=== PATIENT | male | born 1990 | race Caucasian/White ===

== ENCOUNTER → 2018-02-10 15:35 | Outpatient (REF) | payer BC, SELFPAY | LOC: LBN 15:35 | PROVIDERS: PCP Nurse Practitioner; Visit Provider Student in an Organized Health Care Education/Training Program | DX: R35.0 Frequency of micturition (principal) | CPT/HCPCS: 87086 ==

== ENCOUNTER → 2018-02-21 10:08 | Outpatient (CLI) | payer BC, SELFPAY ==
[2018-02-21 11:06] LABS: Abs Immature Grans 0.03 k/cumm (0.0-0.09); Absolute Basophil Count 0.02 k/cumm (0.0-0.2); Absolute Eosinophil Count 0.17 k/cumm (0.0-0.7); Absolute Lymphocyte Count 2.32 k/cumm (1.2-3.4); Absolute Monocyte Count 0.68 k/cumm (0.11-0.7); Absolute Neutrophil Count 4.29 k/cumm (1.2-6.7); Basophils % 0.3; Eosinophils % 2.3; HCT 44.1 % (40.0-50.0); Immature Grans % 0.4; Lymphocytes % 30.9; Mean Corpuscular Hemoglobin 31.5 pg (27.0-33.0); Mean Corpuscular Volume 92.6 fL (80-95); Mean Platelet Volume 10.5 fL (8.0-11.0); Monocytes % 9.1; Platelet Count 223 x1000/uL (130-400); RBC 4.76 m/cumm (4.50-6.00); RBC Distribution Width 12.6 % (11.8-14.1); White Blood Cell Count 7.51 k/cumm (4.4-10.8)
[2018-02-21 12:49] LABS: ALT 25 U/L (12-78); AST 13 U/L (15-37); Albumin 4.1 g/dL (3.4-5.0); Alkaline Phosphatase 68 U/L (46-116); Anion Gap 8.4 mmol/L (3-11); BUN 17 mg/dL (7-18); Bilirubin, Total 0.7 mg/dL (0.2-1.0); CO2 28.6 mmol/L (21.0-32.0); CREATININE 0.92 mg/dL (0.70-1.30); Calcium 9.2 mg/dL (8.5-10.1); Chloride 104 mmol/L (98-107); Glucose 80 mg/dL (70-100); Potassium 4.8 mmol/L (3.5-5.1); Sodium 141 mmol/L (136-145); Total Protein 7.7 g/dL (6.4-8.2)
[2018-02-22 08:56] LABS: PSA, Screening 0.6 ng/ml (0-2.5)
== END ==
PROVIDERS: Student in an Organized Health Care Education/Training Program; PCP Nurse Practitioner; Visit Provider Nurse Practitioner Gerontology
DX: R35.0 Frequency of micturition (principal); N40.0 Benign prostatic hyperplasia without lower urinary tract symptoms; Z12.5 Encounter for screening for malignant neoplasm of prostate
CPT/HCPCS: 36415; 80053; 84153; 85025

== ENCOUNTER 2018-04-07 15:44 | Emergency (ER) | payer BC, SELFPAY ==
[2018-04-07 15:49] VITALS: BP 144/86; PULSE 86; RESP 16; TEMP 36.8; O2SAT 100
[2018-04-07 16:12] LABS: Bilirubin Negative (Negative); Blood Negative (Negative); Clarity Clear; Glucose Negative (Negative); Ketones Negative (Negative); Leukocyte Esterase Negative (Negative); Nitrite Negative (Negative); Urobilinogen 0.2 EU/dL (Up TO 0.2)
[2018-04-07] MEDS: Ibuprofen 800 MG TAB PO (17:16)
--- NOTE | 2018-04-07 17:17 | W.ED.GENAD ---
Discharge Plan Disposition Patient Disposition: HOME Condition: Good Discharge Details Chief Complaint: Urinary Clinical Impression: Strain of muscle and tendon of back wall of thorax, initial encounter, URI (upper respiratory infection) Primary Care Provider: Karlie Tobar ED Provider: Augustin Mccollum Home Meds and New Rx's Prescriptions: New cyclobenzaprine 10 mg tablet 10 mg PO TID PRN (Reason: muscle spasm) Qty: 12 RF: 0 ibuprofen [IBU] 600 mg tablet 600 mg PO QID PRN (Reason: pain) Qty: 14 RF: 0 No Action ibuprofen [Ibuprofen IB] 200 mg Tablet 800 mg PO PRN PRNRF: 0 Discharge Instructions Instructions: Muscle Strain (ED), Upper Respiratory Infection (ED) Additional Instructions: Feel free to return to the emergency department for any new or worsening symptoms otherwise follow-up with your primary care provider if not improving in the next week. Referrals: Karlie Tobar, NUCLEAR MEDICINE OFFICER [Primary Care Provider] - 1 week (if not improving) Discharge Data Discharge Date/Time-TO BE ENTERED AT DEPARTURE: 04/07/18 17:41 Medical Decision Making Patient presenting to the emergency department chief complaint of back pain for 1 week. 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 Patient also states some urinary frequency that he is noted but denies any penile discharge, testicular pain, does state that he recently was diagnosed with enlarged prostate and recommended to take Flomax which is not begun. Patient also states some nasal congestion sore throat mild cough that started last couple days. Physical exam is unremarkable except for some left lower thoracic paraspinal tenderness with no tenderness to the vertebral bodies and lumbar spine unremarkable except for some soft tissue tenderness. Patient does have worsening pain and discomfort with range of motion activities. Pain is reproducible with palpation of the soft tissue so I more suspect musculoskeletal source of discomfort and not any urinary or renal colic type pain. I do not feel that any labs or imaging is needed at this time but these are considered for rule out of renal issues which I doubt. Given the patient stated some urinary symptoms staff pharmacist hospital initiated protocol and urinalysis was ordered and sent which was reviewed and is negative. Patient prescribed ibuprofen and Flexeril to use to see if this helps with his discomfort and recommended to follow-up with his primary care provider in 1 week for reassessment otherwise to return immediately for any new or worsening symptoms. I feel that patient's other symptoms may be related to upper respiratory tract infection which the coughing may also have exacerbated his back pain. After discussion of diagnosis and plan of care patient is no further needs, questions, or concerns and states clear understanding to return to the emergency department for any worsening symptoms. HPI General Mode of arrival: ambulatory. Date/Time Provider Initiated Documentation: 04/07/18 16:41. Limitations to Documentation: no limitations. Information obtained by: patient and RN notes reviewed. History of Present Illness 27 year old M presents to the emergency department with the chief complaint of Back pain, with intensity rated at 7. Quality is described as aching, and is localized to the back (mid back). Patient started experiencing this week(s) (1) and it has been constant. No relieving factors improve symptom(s), No exacerbating factors reported . Patient notes no other symptoms.. Patient did receive the following treatments prior to arrival, none Related Data Home Medications Medication Instructions Recorded Confirmed cyclobenzaprine 10 mg PO TID PRN #12 tab 04/07/18 ibuprofen [IBU] 600 mg PO QID PRN #14 tab 04/07/18 ibuprofen [Ibuprofen IB] 800 mg PO PRN PRN 04/07/18 04/07/18 Previous Rx's Medication Instructions Recorded cyclobenzaprine 10 mg PO TID PRN #12 tab 04/07/18 ibuprofen [IBU] 600 mg PO QID PRN #14 tab 04/07/18 Allergies Allergy/AdvReac Type Severity Reaction Status Date / Time No Known Allergies Allergy Unverified 04/07/18 15:56 General Stated Complaint: Urinary YOEL: 3 Review of Systems Constitutional Denies body ache(s), Denies chills and Denies fever(s) ENT Reports nasal congestion and Reports sore throat Cardiovascular Denies chest pain and Denies dyspnea Respiratory Reports cough and Denies dyspnea Gastrointestinal Denies abdominal pain, Denies nausea and Denies vomiting Genitourinary Denies genital pain, Denies penile discharge, Denies testicular pain and Reports urinary frequency Musculoskeletal Reports back pain Integumentary/Breasts Denies rash Neurologic Denies confusion and Denies sensory deficit Psychiatric Denies confusion PFS Family History Mother Alcohol abuse Neoplasm Father Neoplasm Grandfather Alcohol abuse Neoplasm Grandmother Neoplasm Maternal Aunt Alcohol abuse Grandmother Alcohol abuse Medical History Back pain (Acute) Social History Smoking/Tobacco Use Status: Current every day Surgical History Fx distal radium metaphysis (11/02/05) Tonsillectomy (08/02/05) Exam Const General: cooperative, no acute distress and not ill appearing Orientation: alert, awake and oriented x3 HENMT Ears: hearing grossly normal bilaterally and TM's normal bilaterally General nose exam: external nose normal Mouth: moist mucous membranes and no muffled voice Throat: posterior oropharynx normal Neck Neck: full ROM, no lymphadenopathy and no meningeal signs Resp Effort & Inspection: normal respiratory effort, able to speak in complete sentences and no respiratory distress Auscultation: clear to auscultation bilaterally Cardio Rate: regular rate Rhythm: regular rhythm Heart Sounds: S1 normal, S2 normal and no murmurs Back/Spine/Pelvis Back: no CVA tenderness Thoracic/Lumbar Spine: thoraco-lumbar ROM normal, pain with thoraco-lumbar ROM, paraspinal tenderness, No thoraco-lumbar spasm and lumbar spinal tenderness Skin General skin exam: no rashes or lesions noted Neuro General: alert, awake, oriented x3, moves all extremities and no focal motor deficits Sensory Exam: no sensory deficits noted Course Vital Signs Temperature 36.8 C 04/07/18 15:49 Pulse 86 04/07/18 15:49 Respiratory Rate 16 04/07/18 15:49 Blood Pressure 144/86 H 04/07/18 15:49 Pulse Oximetry 100 04/07/18 15:49 Temperature 36.8 C 04/07/18 15:49 Temperature Source Skin 04/07/18 15:49 Pulse 86 04/07/18 15:49 Respiratory Rate 16 04/07/18 15:49 Respiratory Effort 04/07/18 15:55 Blood Pressure 144/86 H 04/07/18 15:49 Blood Pressure Position Sitting 04/07/18 15:49 Pulse Oximetry 100 04/07/18 15:49 Oxygen Delivery Method Room Air 04/07/18 15:49 Oxygen Flow Rate 0 04/07/18 15:49 Pain Level 8 04/07/18 15:57 Lab/Test Results Lab/Test Results: Laboratory Tests Range/Units 04/07/18 16:03 Urine Color (Yellow) Yellow Urine Clarity Clear Urine pH (5-8) 7.0 Ur Specific [place] (1.005-1.025) 1.020 Urine Protein (Negative) mg/dL Negative Urine Ketones (Negative) mg/dL Negative Urine Blood (Negative) Negative Urine Nitrite (Negative) Negative Urine Bilirubin (Negative) Negative Urine Urobilinogen (Up TO 0.2) EU/dL 0.2 Ur Leukocyte Esterase (Negative) Negative Urine Glucose (Negative) mg/dL Negative
--- NOTE | 2018-04-07 17:28 | ED.GENADUL_ITS ---
Discharge Plan Disposition Patient Disposition: HOME Condition: Good Discharge Details Chief Complaint: Urinary Clinical Impression: Strain of muscle and tendon of back wall of thorax, initial encounter, URI ( upper respiratory infection) Primary Care Provider: Karlie Tobar ED Provider: Augustin Mccollum Home Meds and New Rx's Prescriptions: New cyclobenzaprine 10 mg tablet 10 mg PO TID PRN (Reason: muscle spasm) Qty: 12 RF: 0 ibuprofen [IBU] 600 mg tablet 600 mg PO QID PRN (Reason: pain) Qty: 14 RF: 0 No Action ibuprofen [Ibuprofen IB] 200 mg Tablet 800 mg PO PRN PRNRF: 0 Discharge Instructions Instructions: Muscle Strain (ED), Upper Respiratory Infection (ED) Additional Instructions: Feel free to return to the emergency department for any new or worsening symptoms otherwise follow-up with your primary care provider if not improving in the next week. Referrals: Karlie Tobar, HOSPICE SPIRITUAL CARE COORDINATOR [Primary Care Provider] - 1 week (if not improving) Discharge Data Discharge Date/Time-TO BE ENTERED AT DEPARTURE: 04/07/18 17:41 Medical Decision Making Patient presenting to the emergency department chief complaint of back pain for 1 week. 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 Patient also states some urinary frequency that he is noted but denies any penile discharge, testicular pain, does state that he recently was diagnosed with enlarged prostate and recommended to take Flomax which is not begun. Patient also states some nasal congestion sore throat mild cough that started last couple days. Physical exam is unremarkable except for some left lower thoracic paraspinal tenderness with no tenderness to the vertebral bodies and lumbar spine unremarkable except for some soft tissue tenderness. Patient does have worsening pain and discomfort with range of motion activities. Pain is reproducible with palpation of the soft tissue so I more suspect musculoskeletal source of discomfort and not any urinary or renal colic type pain. I do not feel that any labs or imaging is needed at this time but these are considered for rule out of renal issues which I doubt. Given the patient stated some urinary symptoms staff design engineer initiated protocol and urinalysis was ordered and sent which was reviewed and is negative. Patient prescribed ibuprofen and Flexeril to use to see if this helps with his discomfort and recommended to follow-up with his primary care provider in 1 week for reassessment otherwise to return immediately for any new or worsening symptoms. I feel that patient's other symptoms may be related to upper respiratory tract infection which the coughing may also have exacerbated his back pain. After discussion of diagnosis and plan of care patient is no further needs, questions, or concerns and states clear understanding to return to the emergency department for any worsening symptoms. HPI General Mode of arrival: ambulatory . Date/Time Provider Initiated Documentation: 04/07/18 16:41 . Limitations to Documentation: no limitations . Information obtained by: patient and RN notes reviewed . History of Present Illness 27 year old M presents to the emergency department with the chief complaint of Back pain, with intensity rated at 7. Quality is described as aching, and is localized to the back (mid back). Patient started experiencing this week(s ) (1) and it has been constant. No relieving factors improve symptom(s), No exacerbating factors reported . Patient notes no other symptoms.. Patient did receive the following treatments prior to arrival, none Related Data Home Medications Medication Instructions Recorded Confirmed cyclobenzaprine 10 mg PO TID PRN #12 tab 04/07/18 ibuprofen [IBU] 600 mg PO QID PRN #14 tab 04/07/18 ibuprofen [Ibuprofen IB] 800 mg PO PRN PRN 04/07/18 04/07/18 Previous Rx's Medication Instructions Recorded cyclobenzaprine 10 mg PO TID PRN #12 tab 04/07/18 ibuprofen [IBU] 600 mg PO QID PRN #14 tab 04/07/18 Allergies Allergy/AdvReac Type Severity Reaction Status Date / Time No Known Allergies Allergy Unverified 04/07/18 15:56 General Stated Complaint: Urinary YOEL: 3 Review of Systems Constitutional Denies body ache(s), Denies chills and Denies fever(s) ENT Reports nasal congestion and Reports sore throat Cardiovascular Denies chest pain and Denies dyspnea Respiratory Reports cough and Denies dyspnea Gastrointestinal Denies abdominal pain, Denies nausea and Denies vomiting Genitourinary Denies genital pain, Denies penile discharge, Denies testicular pain and Reports urinary frequency Musculoskeletal Reports back pain Integumentary/Breasts Denies rash Neurologic Denies confusion and Denies sensory deficit Psychiatric Denies confusion PFS Family History Mother Alcohol abuse Neoplasm Father Neoplasm Grandfather Alcohol abuse Neoplasm Grandmother Neoplasm Maternal Aunt Alcohol abuse Grandmother Alcohol abuse Medical History Back pain (Acute) Social History Smoking/Tobacco Use Status: Current every day Surgical History Fx distal radium metaphysis (11/02/05) Tonsillectomy (08/02/05) Exam Const General: cooperative, no acute distress and not ill appearing Orientation: alert, awake and oriented x3 HENMT Ears: hearing grossly normal bilaterally and TM's normal bilaterally General nose exam: external nose normal Mouth: moist mucous membranes and no muffled voice Throat: posterior oropharynx normal Neck Neck: full ROM, no lymphadenopathy and no meningeal signs Resp Effort & Inspection: normal respiratory effort, able to speak in complete sentences and no respiratory distress Auscultation: clear to auscultation bilaterally Cardio Rate: regular rate Rhythm: regular rhythm Heart Sounds: S1 normal, S2 normal and no murmurs Back/Spine/Pelvis Back: no CVA tenderness Thoracic/Lumbar Spine: thoraco-lumbar ROM normal, pain with thoraco-lumbar ROM, paraspinal tenderness, No thoraco-lumbar spasm and lumbar spinal tenderness Skin General skin exam: no rashes or lesions noted Neuro General: alert, awake, oriented x3, moves all extremities and no focal motor deficits Sensory Exam: no sensory deficits noted Course Vital Signs Temperature 36.8 C 04/07/18 15:49 Pulse 86 04/07/18 15:49 Respiratory Rate 16 04/07/18 15:49 Blood Pressure 144/86 H 04/07/18 15:49 Pulse Oximetry 100 04/07/18 15:49 Temperature 36.8 C 04/07/18 15:49 Temperature Source Skin 04/07/18 15:49 Pulse 86 04/07/18 15:49 Respiratory Rate 16 04/07/18 15:49 Respiratory Effort 04/07/18 15:55 Blood Pressure 144/86 H 04/07/18 15:49 Blood Pressure Position Sitting 04/07/18 15:49 Pulse Oximetry 100 04/07/18 15:49 Oxygen Delivery Method Room Air 04/07/18 15:49 Oxygen Flow Rate 0 04/07/18 15:49 Pain Level 8 04/07/18 15:57 Lab/Test Results Lab/Test Results: Laboratory Tests Range/Units 04/07/18 16:03 Urine Color (Yellow) Yellow Urine Clarity Clear Urine pH (5-8) 7.0 Ur Specific [place] (1.005-1.025) 1.020 Urine Protein (Negative) mg/dL Negative Urine Ketones (Negative) mg/dL Negative Urine Blood (Negative) Negative Urine Nitrite (Negative) Negative Urine Bilirubin (Negative) Negative Urine Urobilinogen (Up TO 0.2) EU/dL 0.2 Ur Leukocyte Esterase (Negative) Negative Urine Glucose (Negative) mg/dL Negative
[2018-04-07 17:40] VITALS: BP 144/86; PULSE 86; RESP 16; TEMP 36.8; O2SAT 100
== END 2018-04-07 17:41 | disposition home or self-care (01) ==
PROVIDERS: Emergency Provider Nurse Practitioner Family; PCP Nurse Practitioner
DX: S29.012A Strain of muscle and tendon of back wall of thorax, initial encounter (principal); X58.XXXA Exposure to other specified factors, initial encounter; J06.9 Acute upper respiratory infection, unspecified; R35.0 Frequency of micturition
CPT/HCPCS: 99283; 81003

== ENCOUNTER 2018-11-07 00:39 | Emergency (ER) | payer SELFPAY ==
[2018-11-07 00:40] VITALS: BP 133/76; PULSE 96; RESP 16; TEMP 36.4; O2SAT 98
[2018-11-07 00:49] LABS: Bilirubin Negative (Negative); Blood Moderate (Negative); Clarity Sl Cloudy; Glucose Negative (Negative); Ketones Negative (Negative); Leukocyte Esterase Negative (Negative); Nitrite Negative (Negative); Specific Gravity 1.025 (1.005-1.025); Urobilinogen 0.2 EU/dL (Up TO 0.2)
--- NOTE | 2018-11-07 00:52 | DI.CT_ITS ---
SYMPTOMS/DIAGNOSIS: RT FLANK PAIN, HEMATURIA RENAL COLIC CT: Routine examination was performed. There are no priors for comparison. No acute findings are seen in the lung bases. Lack of IV contrast does limit evaluation of the abdominal and pelvic organs. The unenhanced visualized portions of the liver, spleen, pancreas, gallbladder and adrenal glands are unremarkable. There is a 3 mm stone in the proximal right ureter causing mild hydronephrosis. No other renal stones or ureteral stones are present. The urinary bladder is intact. The reproductive organs are unremarkable. The bowel is unremarkable. No evidence of an acute appendicitis is present. The abdominal aorta is of normal caliber. No significant abdominal or pelvic adenopathy, ascites or pneumoperitoneum is seen. No acute osseous abnormality is identified. IMPRESSION: 3 mm proximal right ureteral stone causing mild hydronephrosis.
--- NOTE | 2018-11-07 00:52 | W.ED.GENAD ---
Discharge Plan Disposition Patient Disposition: HOME Condition: Improving Discharge Details Chief Complaint: FlankPain Clinical Impression: Renal colic on right side Primary Care Provider: Karlie Tobar ED Provider: David Raman Home Meds and New Rx's Prescriptions: New tamsulosin [Flomax] 0.4 mg capsule 0.4 mg PO DAILY Qty: 7 RF: 0 Continued ibuprofen [IBU] 600 mg tablet 600 mg PO QID PRN (Reason: pain) Qty: 14 RF: 0 Discharge Instructions Instructions: Abdominal Pain (ED) Additional Instructions: Take Flomax once daily while you are having symptoms of kidney stone. This medication may cause lightheadedness when rising quickly from a seated or lying position. Home to rest this evening. Small, frequent sips of fluids to maintain hydration. We will refer you to urology for follow-up. A referral was placed tonight. May use the hydrocodone if needed for severe breakthrough pain. Ibuprofen 600 800 mg every 8 hours, with food. Return if you develop a fever, worsening pain, or any other acute concerns. Medical Decision Making 28-year-old male presents from home with 1 day of intermittent episodes of right flank pain that radiates at times to his groin. He is afebrile and in mild distress on initial exam with tenderness on the right flank and right abdomen. Differential diagnosis includes renal colic, appendicitis, unusual presentation of biliary colic. IV placed, labs obtained, patient referred for CT imaging. Diagnostics: Positive hematuria, unremarkable CBC and chemistries. Patients CT reveals a 3 mm right proximal ureteral calculus with mild hydronephrosis. His pain is improved with parenteral medications, may require additional analgesia at home. We will have him strain his urine, we will place him on Flomax for ureteral dilatation, and asked that he follow-up with urology. Patient understands return precautions. Stable for discharge to home. HPI General Mode of arrival: ambulatory. Date/Time Provider Initiated Documentation: 11/07/18 00:46. Limitations to Documentation: no limitations. Information obtained by: patient and family. History of Present Illness 28 year old M presents to the emergency department with the chief complaint of Right flank pain intermittently since last night, described as moderate, Quality is described as stabbing, and is localized to the back and right. Patient abdomen. Patient started experiencing this hour(s) and it has been intermittent. No relieving factors improve symptom(s), No exacerbating factors reported . Patient notes other (Change to stream of urine). Patient did receive the following treatments prior to arrival, NSAID Related Data Home Medications Medication Instructions Recorded Confirmed ibuprofen [IBU] 600 mg PO QID PRN #14 tab 04/07/18 11/07/18 tamsulosin [Flomax] 0.4 mg PO DAILY #7 cap 11/07/18 Previous Rx's Medication Instructions Recorded ibuprofen [IBU] 600 mg PO QID PRN #14 tab 04/07/18 tamsulosin [Flomax] 0.4 mg PO DAILY #7 cap 11/07/18 Allergies Allergy/AdvReac Type Severity Reaction Status Date / Time No Known Allergies Allergy Unverified 11/07/18 00:40 General Stated Complaint: FlankPain YOEL: 3 Review of Systems Review of Systems 8 systems reviewed and otherwise negative [facility] Medical History Back pain (Acute) Surgical History Fx distal radium metaphysis (11/02/05) Tonsillectomy (08/02/05) Family History Mother Alcohol abuse Neoplasm Father Neoplasm Grandfather Alcohol abuse Neoplasm Grandmother Neoplasm Maternal Aunt Alcohol abuse Grandmother Alcohol abuse Social History Smoking/Tobacco Use Status: Current every day Drug use: Occasionally Do you feel safe in your relationship?: Yes Exam Narrative Exam Narrative: GEN: awake, alert, oriented 3. Pleasant, well groomed, interactive. HEAD: Normocephalic, atraumatic ENT: Mucous membranes moist, oropharynx unremarkable, External ear exam unremarkable EYES: PERRL, EOMI NECK: Full ROM, no COLLEEN, no menigismus CHEST/RESP: Nontender, clear to auscultation bilateral but with few scattered wheezes. Back: Right flank tender to percussion CARDIOVASCULAR: RRR, no murmur, rub bautista. 2+ Rad pulse bilateral ABDOMEN: Soft, right-sided abdominal tenderness, no mass. +Bowel sounds EXT: Full ROM, no edema, no rash Neuro: Grossly normal neurologic exam, conversant, interactive. Psych: Speech fluent, thoughts congruent, affect normal Course Vital Signs Temperature 36.4 C L 11/07/18 00:40 Pulse 96 H 11/07/18 00:40 Respiratory Rate 16 11/07/18 00:40 Blood Pressure 133/76 11/07/18 00:40 Pulse Oximetry 98 11/07/18 00:40 Temperature 36.4 C L 11/07/18 00:40 Temperature Source Temporal Artery Scan 11/07/18 00:40 Pulse 96 H 11/07/18 00:40 Respiratory Rate 16 11/07/18 00:40 Respiratory Effort 11/07/18 00:40 Blood Pressure 133/76 11/07/18 00:40 Blood Pressure Position Sitting 11/07/18 00:40 Pulse Oximetry 98 11/07/18 00:40 Oxygen Delivery Method Room Air 11/07/18 00:40 Oxygen Flow Rate 0 11/07/18 00:40 Pain Level 6 11/07/18 00:45 Lab/Test Results Lab/Test Results: Laboratory Tests Range/Units 11/07/18 00:45 Urine Color (Yellow) Yellow Urine Clarity Sl cloudy Urine pH (5-8) 6.0 Ur Specific [place] (1.005-1.025) 1.025 Urine Protein (Negative) mg/dL Trace H Urine Ketones (Negative) mg/dL Negative Urine Blood (Negative) Moderate H Urine Nitrite (Negative) Negative Urine Bilirubin (Negative) Negative Urine Urobilinogen (Up TO 0.2) EU/dL 0.2 Ur Leukocyte Esterase (Negative) Negative Urine Glucose (Negative) mg/dL Negative
[2018-11-07 00:55] LABS: Bacteria Few HPF (Negative); C & S Indicated? No; Casts Negative LPF (Negative); Crystals Negative HPF (Negative); Epithelial Cells Rare HPF (Negative); Mucus Negative (Negative); RBC >50 (0-2); WBC 0-2 HPF (0-5)
[2018-11-07] MEDS: Normal Saline 1,000 ML 1000 ML IV (00:55)
[2018-11-07] MEDS: Ketorolac 30 MG/ML VIAL IVP (00:55)
--- NOTE | 2018-11-07 00:55 | ED.GENADUL_ITS ---
Discharge Plan Disposition Patient Disposition: HOME Condition: Improving Discharge Details Chief Complaint: FlankPain Clinical Impression: Renal colic on right side Primary Care Provider: Karlie Tobar ED Provider: David Raman Home Meds and New Rx's Prescriptions: New tamsulosin [Flomax] 0.4 mg capsule 0.4 mg PO DAILY Qty: 7 RF: 0 Continued ibuprofen [IBU] 600 mg tablet 600 mg PO QID PRN (Reason: pain) Qty: 14 RF: 0 Discharge Instructions Instructions: Abdominal Pain (ED) Additional Instructions: Take Flomax once daily while you are having symptoms of kidney stone. This medication may cause lightheadedness when rising quickly from a seated or lying position. Home to rest this evening. Small, frequent sips of fluids to maintain hydration. We will refer you to urology for follow-up. A referral was placed tonight. May use the hydrocodone if needed for severe breakthrough pain. Ibuprofen 600 800 mg every 8 hours, with food. Return if you develop a fever, worsening pain, or any other acute concerns. Medical Decision Making 28-year-old male presents from home with 1 day of intermittent episodes of right flank pain that radiates at times to his groin. He is afebrile and in mild distress on initial exam with tenderness on the right flank and right abdomen. Differential diagnosis includes renal colic, appendicitis, unusual presentation of biliary colic. IV placed, labs obtained, patient referred for CT imaging. Diagnostics: Positive hematuria, unremarkable CBC and chemistries. Patients CT reveals a 3 mm right proximal ureteral calculus with mild hydronephrosis. His pain is improved with parenteral medications, may require additional analgesia at home. We will have him strain his urine, we will place him on Flomax for ureteral dilatation, and asked that he follow-up with urology. Patient understands return precautions. Stable for discharge to home. HPI General Mode of arrival: ambulatory . Date/Time Provider Initiated Documentation: 11/07/18 00:46 . Limitations to Documentation: no limitations . Information obtained by: patient and family . History of Present Illness 28 year old M presents to the emergency department with the chief complaint of Right flank pain intermittently since last night, described as moderate, Quality is described as stabbing, and is localized to the back and right. Patient abdomen. Patient started experiencing this hour(s) and it has been intermittent. No relieving factors improve symptom(s), No exacerbating factors reported . Patient notes other (Change to stream of urine). Patient did receive the following treatments prior to arrival, NSAID Related Data Home Medications Medication Instructions Recorded Confirmed ibuprofen [IBU] 600 mg PO QID PRN #14 tab 04/07/18 11/07/18 tamsulosin [Flomax] 0.4 mg PO DAILY #7 cap 11/07/18 Previous Rx's Medication Instructions Recorded ibuprofen [IBU] 600 mg PO QID PRN #14 tab 04/07/18 tamsulosin [Flomax] 0.4 mg PO DAILY #7 cap 11/07/18 Allergies Allergy/AdvReac Type Severity Reaction Status Date / Time No Known Allergies Allergy Unverified 11/07/18 00:40 General Stated Complaint: FlankPain YOEL: 3 Review of Systems Review of Systems 8 systems reviewed and otherwise negative FOR[facility]LY [facility] Medical History Back pain (Acute) Surgical History Fx distal radium metaphysis (11/02/05) Tonsillectomy (08/02/05) Family History Mother Alcohol abuse Neoplasm Father Neoplasm Grandfather Alcohol abuse Neoplasm Grandmother Neoplasm Maternal Aunt Alcohol abuse Grandmother Alcohol abuse Social History Smoking/Tobacco Use Status: Current every day Drug use: Occasionally Do you feel safe in your relationship?: Yes Exam Narrative Exam Narrative: GEN: awake, alert, oriented 3. Pleasant, well groomed, interactive. HEAD: Normocephalic, atraumatic ENT: Mucous membranes moist, oropharynx unremarkable, External ear exam unremarkable EYES: PERRL, EOMI NECK: Full ROM, no COLLEEN, no menigismus CHEST/RESP: Nontender, clear to auscultation bilateral but with few scattered wheezes. Back: Right flank tender to percussion CARDIOVASCULAR: RRR, no murmur, rub bautsita. 2+ Rad pulse bilateral ABDOMEN: Soft, right-sided abdominal tenderness, no mass. +Bowel sounds EXT: Full ROM, no edema, no rash Neuro: Grossly normal neurologic exam, conversant, interactive. Psych: Speech fluent, thoughts congruent, affect normal Course Vital Signs Temperature 36.4 C L 11/07/18 00:40 Pulse 96 H 11/07/18 00:40 Respiratory Rate 16 11/07/18 00:40 Blood Pressure 133/76 11/07/18 00:40 Pulse Oximetry 98 11/07/18 00:40 Temperature 36.4 C L 11/07/18 00:40 Temperature Source Temporal Artery Scan 11/07/18 00:40 Pulse 96 H 11/07/18 00:40 Respiratory Rate 16 11/07/18 00:40 Respiratory Effort 11/07/18 00:40 Blood Pressure 133/76 11/07/18 00:40 Blood Pressure Position Sitting 11/07/18 00:40 Pulse Oximetry 98 11/07/18 00:40 Oxygen Delivery Method Room Air 11/07/18 00:40 Oxygen Flow Rate 0 11/07/18 00:40 Pain Level 6 11/07/18 00:45 Lab/Test Results Lab/Test Results: Laboratory Tests Range/Units 11/07/18 00:45 Urine Color (Yellow) Yellow Urine Clarity Sl cloudy Urine pH (5-8) 6.0 Ur Specific [place] (1.005-1.025) 1.025 Urine Protein (Negative) mg/dL Trace H Urine Ketones (Negative) mg/dL Negative Urine Blood (Negative) Moderate H Urine Nitrite (Negative) Negative Urine Bilirubin (Negative) Negative Urine Urobilinogen (Up TO 0.2) EU/dL 0.2 Ur Leukocyte Esterase (Negative) Negative Urine Glucose (Negative) mg/dL Negative
[2018-11-07 01:10] LABS: Abs Immature Grans 0.04 k/cumm (0.0-0.09); Absolute Basophil Count 0.02 k/cumm (0.0-0.2); Absolute Eosinophil Count 0.26 k/cumm (0.0-0.7); Absolute Lymphocyte Count 3.46 k/cumm (1.2-3.4); Absolute Monocyte Count 0.82 k/cumm (0.11-0.7); Absolute Neutrophil Count 5.76 k/cumm (1.2-6.7); Basophils % 0.2; Eosinophils % 2.5; HCT 42.6 % (40.0-50.0); HGB 15.1 g/dL (13.5-17.5); Immature Grans % 0.4; Lymphocytes % 33.4; Mean Corp. HGB Concentration 35.4 g/dL (32.0-36.0); Mean Corpuscular Hemoglobin 31.8 pg (27.0-33.0); Mean Corpuscular Volume 89.7 fL (80-95); Mean Platelet Volume 10.3 fL (8.0-11.0); Monocytes % 7.9; Neutrophils % 55.6; Platelet Count 225 x1000/uL (130-400); RBC 4.75 m/cumm (4.50-6.00); RBC Distribution Width 12.1 % (11.8-14.1); White Blood Cell Count 10.36 k/cumm (4.4-10.8)
[2018-11-07 01:22] LABS: ALT 35 U/L (12-78); AST 15 U/L (15-37); Albumin 4.1 g/dL (3.4-5.0); Alkaline Phosphatase 63 U/L (46-116); Anion Gap 9.3 mmol/L (3-11); BUN 16 mg/dL (7-18); Bilirubin, Total 0.4 mg/dL (0.2-1.0); CO2 27.7 mmol/L (21.0-32.0); CREATININE 1.09 mg/dL (0.70-1.30); Calcium 9.2 mg/dL (8.5-10.1); Chloride 103 mmol/L (98-107); Glucose 117 mg/dL (70-100); Potassium 3.5 mmol/L (3.5-5.1); Sodium 140 mmol/L (136-145); Total Protein 7.7 g/dL (6.4-8.2)
--- NOTE | 2018-11-07 01:35 | DI.VRAD_ITS ---
EXAM: CT Abdomen and Pelvis Without Contrast EXAM DATE/TIME: 11/07/2018 12:53 AM CLINICAL HISTORY: 28 years old, male; Abdominal pain and other: Flank; Generalized; Patient HX: R flank pain, hematuria TECHNIQUE: Imaging protocol: Axial computed tomography images of the abdomen and pelvis without contrast. Coronal and sagittal reformatted images were created and reviewed. Radiation optimization: All CT scans at this facility use at least one of these dose optimization techniques: automated exposure control; mA and/or kV adjustment per patient size (includes targeted exams where dose is matched to clinical indication); or iterative reconstruction. COMPARISON: No relevant prior studies available. FINDINGS: ABDOMEN: Liver: No suspicious lesions. Gallbladder and bile ducts: No acute or concerning findings. Pancreas: Unremarkable. Spleen: No suspicious lesions. Adrenals: Unremarkable. No suspicious nodule. Kidneys and ureters: 3 mm stone proximal right ureter causing mild hydronephrosis. Stomach and bowel: Unremarkable. No inflammed or dilated loops. Appendix: No evidence of appendicitis. PELVIS: Bladder: Unremarkable as visualized. Reproductive: Unremarkable as visualized. ABDOMEN and PELVIS: Intraperitoneal space: No free air. No significant fluid collection. Bones/joints: No acute fracture. No dislocation. Soft tissues: Unremarkable. Vasculature: Unremarkable. Lymph nodes: Unremarkable. IMPRESSION: 3 mm stone proximal right ureter causing mild hydronephrosis. Dictated and Authenticated by: Dmitry Pérez MD. Ordering:ALFONSO Hernandez MD
[2018-11-07] MEDS: Tamsulosin 0.4 MG CAPCR PO (01:40)
[2018-11-07] MEDS: HYDROcodone 5/Acetaminophen 325 TAB PO (01:41)
[2018-11-07 01:53] VITALS: BP 121/75; PULSE 93; RESP 18; TEMP 36.7; O2SAT 97
== END 2018-11-07 01:55 | disposition home or self-care (01) ==
LOC: ER 01:56
PROVIDERS: Emergency Provider Emergency Medicine; PCP Nurse Practitioner
DX: N23 Unspecified renal colic (principal); N13.39 Other hydronephrosis
CPT/HCPCS: 36415; 80053; 96361; 96374; 99284; 74176; 81003; 81015; 85025

== ENCOUNTER 2018-11-09 07:42 | Emergency (ER) | payer SELFPAY ==
[2018-11-09 07:47] VITALS: BP 146/102; PULSE 94; RESP 20; TEMP 37; O2SAT 96
--- NOTE | 2018-11-09 07:56 | ED.GENADUL_ITS ---
Discharge Plan Disposition Patient Disposition: HOME Condition: Improving Discharge Details Chief Complaint: FlankPain Clinical Impression: Kidney stones Primary Care Provider: Karlie Tobar ED Provider: Violet Arevalo Home Meds and New Rx's Prescriptions: New tamsulosin [Flomax] 0.4 mg capsule 0.4 mg PO DAILY Qty: 7 RF: 0 Continued ibuprofen [IBU] 600 mg tablet 600 mg PO QID PRN (Reason: pain) Qty: 14 RF: 0 tamsulosin [Flomax] 0.4 mg capsule 0.4 mg PO DAILY Qty: 7 RF: 0 Discharge Instructions Instructions: Kidney Stones (ED) Additional Instructions: Alternate Tylenol and Motrin as needed and directed for pain. Take the Vicodin as needed and directed for pain not relieved with Tylenol or Motrin. Take the Zofran as needed directed for nausea or vomiting. Drink plenty of fluids. Call urology today to schedule a follow-up appointment for reevaluation this week. Return immediately to the emergency department with any worsening or concerning symptoms. Referrals: Daryl Rubalcava MD [ [facility] ST[facility]FF PHYSICIAN] - Discharge Data Discharge Physician: Violet Arevalo Medical Decision Making 28-year-old male diagnosed with kidney stones 2 days ago who presents with re turn of right-sided flank pain since 5 AM this morning. Patient noted to have a 3 mm proximal right ureteral stone on CT imaging 2 days ago. His lab work was within normal limits and his urinalysis noted blood without infection at that time. BP hypertensive on arrival, remainder vitals within normal limits. Afebrile. Patient appears nontoxic. No CVA tenderness. Mild suprapubic tenderness to palpation. Normal exam. Discussed with patient that his symptoms are likely due to the stone being proximal and is in the process of working its way down. Patient had an IV, fluids, labs, urinalysis and Toradol ordered on arrival. Upon my evaluation, pain significantly improved from 04/19 to 09/17. 0930 --labs reviewed. White blood cell count 9. Normal creatinine. Urinalysis notes blood but no evidence of infection. Discussed with Dr. Rubalcava -agrees with holding on imaging at this time. Recommends to continue Flomax. Patient feels much better and feels good to go home. Patient instructed to call urology office - they will hopefully follow up with patient this week. 2 tabs of Vicodin and 2 tabs of Zofran given for home. Patient instructed to drink plenty of fluids and take the Flomax until stone is passed. He is instructed to return here with any worsening symptoms. Medical Records Medical records reviewed: Yes I reviewed the patient's medical records. Lab Data Lab results reviewed: Yes I reviewed the patient's lab results. Laboratory Tests Range/Units 11/09/18 11/09/18 11/09/18 08:06 08:06 09:10 WBC (4.4-10.8) k/cumm 9.86 RBC (4.50-6.00) m/cumm 4.66 Hgb (13.5-17.5) g/dL 14.8 Hct (40.0-50.0) % 42.7 MCV (80-95) fL 91.6 MCH (27.0-33.0) pg 31.8 MCHC (32.0-36.0) g/dL 34.7 RDW (11.8-14.1) % 12.2 Plt Count (130-400) x1000/uL 219 MPV (8.0-11.0) fL 10.1 Immature Gran % 0.2 Neutrophils % 79.6 Lymphocytes % 12.1 Monocytes % 6.5 Eosinophils % 1.5 Basophils % 0.1 Absolute Neutrophils (1.2-6.7) k/cumm 7.85 H Absolute Lymphocytes (1.2-3.4) k/cumm 1.19 L Absolute Monocytes (0.11-0.7) k/cumm 0.64 Absolute Eosinophils (0.0-0.7) k/cumm 0.15 Absolute Basophils (0.0-0.2) k/cumm 0.01 Sodium (136-145) mmol/L 140 Potassium (3.5-5.1) mmol/L 4.4 D Chloride (98-107) mmol/L 107 Carbon Dioxide (21.0-32.0) mmol/L 28.0 Anion Gap (3-11) mmol/L 5.0 BUN (7-18) mg/dL 16 Creatinine (0.70-1.30) mg/dL 1.14 Estimated GFR/1.73 m2 (mL/min/1.73m2) >= 60.00 Glucose (70-100) mg/dL 109 H Calcium (8.5-10.1) mg/dL 8.8 Urine Color (Yellow) Yellow Urine Clarity Clear Urine pH (5-8) 5.5 Ur Specific [place] (1.005-1.025) 1.020 Urine Protein (Negative) mg/dL Negative Urine Ketones (Negative) mg/dL Negative Urine Blood (Negative) Moderate H Urine Nitrite (Negative) Negative Urine Bilirubin (Negative) Negative Urine Urobilinogen (Up TO 0.2) EU/dL 0.2 Ur Leukocyte Esterase (Negative) Negative Urine RBC (0-2) 20-50 H Urine WBC (0-5) HPF 0-2 Ur Epithelial Cells (Negative) HPF Negative Urine Crystals (Negative) HPF Negative Urine Bacteria (Negative) HPF Negative Urine Casts (Negative) LPF Negative Urine Mucus (Negative) Heavy Ur Culture Indicated? No Urine Glucose (Negative) mg/dL Negative HPI General Mode of arrival: ambulatory . Date/Time Provider Initiated Documentation: 11/09/18 07:53 . Limitations to Documentation: no limitations . Information obtained by: patient . HPI Narrative: Pt is a 28yo M with a history of recently diagnosed kidney stone seen here earlier this week for same who presents with right flank pain since 5 AM this morning. Patient states he was seen here 2 days ago for right flank pain with radiation to his right groin and was diagnosed with a kidney stone and sent home with Vicodin. Patient states the pain was significantly improved yesterday and return to 5 at this morning. Patient states he had sexual intercourse last night but was unable to ejaculate. He admits to some nausea this morning but denies any known fever, vomiting. He admits to some suprapubic abdominal pain. He last took ibuprofen at 4 AM this morning. Patient also states that he has had a chronic history of urinary hesitancy and urgency for the past 2 to 3 years after an episode of trying to hold his urine in the middle the night. Patient states he was seen by urology at that time and was told he had an enlarged prostate and was started on Flomax. He states since that time he has frequent episodes of urinary hesitancy and urgency but denies any dysuria, hematuria. He also states he has intermittent chronic b/l testicular dull ache and pressure for the past few years. Related Data Home Medications Medication Instructions Recorded Confirmed ibuprofen [IBU] 600 mg PO QID PRN #14 tab 04/07/18 11/09/18 tamsulosin [Flomax] 0.4 mg PO DAILY #7 cap 11/07/18 11/09/18 tamsulosin [Flomax] 0.4 mg PO DAILY #7 cap 11/09/18 Previous Rx's Medication Instructions Recorded ibuprofen [IBU] 600 mg PO QID PRN #14 tab 04/07/18 tamsulosin [Flomax] 0.4 mg PO DAILY #7 cap 11/07/18 tamsulosin [Flomax] 0.4 mg PO DAILY #7 cap 11/09/18 Allergies Allergy/AdvReac Type Severity Reaction Status Date / Time No Known Allergies Allergy Unverified 11/09/18 07:50 General Stated Complaint: FlankPain YOEL: 3 Review of Systems Review of Systems All systems reviewed & are unremarkable except as noted in HPI and below Constitutional Reports as per HPI, Denies chills and Denies fever(s) Eyes Denies blurry vision ENT Denies dizziness, Denies sore throat and Denies throat swelling Cardiovascular Denies chest pain and Denies dyspnea Respiratory Denies cough and Denies dyspnea Gastrointestinal Denies abdominal pain, Denies diarrhea and Denies vomiting Genitourinary Denies hematuria, Denies dysuria, Reports flank pain, Reports urinary hesitancy (chronic ) and Reports urinary urgency (chronic) Musculoskeletal Denies back pain and Denies numbness Integumentary/Breasts Denies lesions and Denies rash Neurologic Denies dizziness, Denies focal weakness and Denies numbness Allergic/Immunologic Denies throat swelling PFSH Medical History Back pain (Acute) Surgical History Fx distal radium metaphysis (11/02/05) Tonsillectomy (08/02/05) Family History Mother Alcohol abuse Neoplasm Father Neoplasm Grandfather Alcohol abuse Neoplasm Grandmother Neoplasm Maternal Aunt Alcohol abuse Grandmother Alcohol abuse Social History Smoking/Tobacco Use Status: Current every day Tobacco Type: e-cigarettes Alcohol Intake: current Alcohol Intake frequency: 0-2 drinks per day Alcohol type: beer Drug use: Occasionally Substance use type: marijuana Do you feel safe at home: Yes Do you feel safe in your relationship?: Yes Exam Const General: cooperative, healthy appearing and no acute distress HENMT Head: normal to inspection Face and sinus: normal facial exam Eyes General: appearance normal, both eyes and all related structures Neck Neck: normal visual inspection and No submandibular swelling Lymphatic: no lymphadenopathy noted Chest Chest: normal inspection of the chest and no tenderness Resp Effort & Inspection: normal respiratory effort and able to speak in complete sentences Auscultation: clear to auscultation bilaterally Cardio Rate: regular rate Rhythm: regular rhythm GI Inspection: normal to inspection Palpation: soft, not firm, not rigid and tender suprapubicly Auscultation: normal bowel sounds Male General Exam: Yes normal external exam Penis: normal penis Scrotum: scrotum normal Testes: no testicular mass, no testicular swelling and no testicular tenderness Skin General skin exam: no rashes or lesions noted Neuro General: alert, awake and oriented x3 Cognition: normal cognition Speech: speech normal Motor: muscle tone normal throughout Sensory Exam: no sensory deficits noted Extrem General: normal to inspection, full ROM and no edema Psych Appearance: grossly normal Mental Status: mental status grossly normal Speech and Movement: speech and movement normal Affect: normal affect Course Vital Signs Temperature 98.6 F 11/09/18 07:47 Pulse 94 H 11/09/18 07:47 Respiratory Rate 20 11/09/18 07:47 Blood Pressure 146/102 H 11/09/18 07:47 Pulse Oximetry 96 11/09/18 07:47 Temperature 98.6 F 11/09/18 07:47 Temperature Source Temporal Artery Scan 11/09/18 07:47 Pulse 94 H 11/09/18 07:47 Respiratory Rate 20 11/09/18 07:47 Respiratory Effort Non-Labored 11/09/18 07:47 Blood Pressure 146/102 H 11/09/18 07:47 Pulse Oximetry 96 11/09/18 07:47 Oxygen Delivery Method Room Air 11/09/18 07:47 Oxygen Flow Rate 0 11/09/18 07:47 Pain Level 8 11/09/18 07:51
[2018-11-09 08:12] LABS: Abs Immature Grans 0.02 k/cumm (0.0-0.09); Absolute Basophil Count 0.01 k/cumm (0.0-0.2); Absolute Eosinophil Count 0.15 k/cumm (0.0-0.7); Absolute Lymphocyte Count 1.19 k/cumm (1.2-3.4); Absolute Monocyte Count 0.64 k/cumm (0.11-0.7); Absolute Neutrophil Count 7.85 k/cumm (1.2-6.7); Basophils % 0.1; Eosinophils % 1.5; HCT 42.7 % (40.0-50.0); HGB 14.8 g/dL (13.5-17.5); Immature Grans % 0.2; Lymphocytes % 12.1; Mean Corp. HGB Concentration 34.7 g/dL (32.0-36.0); Mean Corpuscular Hemoglobin 31.8 pg (27.0-33.0); Mean Corpuscular Volume 91.6 fL (80-95); Mean Platelet Volume 10.1 fL (8.0-11.0); Monocytes % 6.5; Neutrophils % 79.6; Platelet Count 219 x1000/uL (130-400); RBC 4.66 m/cumm (4.50-6.00); RBC Distribution Width 12.2 % (11.8-14.1); White Blood Cell Count 9.86 k/cumm (4.4-10.8)
[2018-11-09 08:21] LABS: BUN 16 mg/dL (7-18); CREATININE 1.14 mg/dL (0.70-1.30); Calcium 8.8 mg/dL (8.5-10.1); Chloride 107 mmol/L (98-107); Glucose 109 mg/dL (70-100); Potassium 4.4 mmol/L (3.5-5.1); Sodium 140 mmol/L (136-145)
[2018-11-09] MEDS: Ketorolac 30 MG/ML VIAL IVP (08:31)
[2018-11-09] MEDS: Normal Saline 1,000 ML 1000 ML IV (08:32)
[2018-11-09 09:17] LABS: Bilirubin Negative (Negative); Blood Moderate (Negative); Clarity Clear; Glucose Negative (Negative); Ketones Negative (Negative); Leukocyte Esterase Negative (Negative); Nitrite Negative (Negative); Urobilinogen 0.2 EU/dL (Up TO 0.2); pH 5.5 (5-8)
[2018-11-09 09:25] LABS: Bacteria Negative HPF (Negative); Casts Negative LPF (Negative); Crystals Negative HPF (Negative); Epithelial Cells Negative HPF (Negative); Mucus Heavy (Negative); RBC 20-50 (0-2); WBC 0-2 HPF (0-5)
[2018-11-09 09:26] LABS: C & S Indicated? No
[2018-11-09 09:28] VITALS: BP 127/83; PULSE 84; RESP 16; TEMP 37.1; O2SAT 95
[2018-11-09] MEDS: Ondansetron O.D.T. 4 MG TABEF 8 MG PO (10:02)
[2018-11-09] MEDS: HYDROcodone 5/Acetaminophen 325 TAB PO (10:03)
[2018-11-09 10:06] VITALS: BP 127/83; PULSE 84; RESP 16; TEMP 37.1; O2SAT 95
== END 2018-11-09 10:06 | disposition home or self-care (01) ==
PROVIDERS: Emergency Provider Physician Assistant; PCP Nurse Practitioner
DX: N20.1 Calculus of ureter (principal); I10 Essential (primary) hypertension
CPT/HCPCS: 36415; 80048; 96361; 96374; 99284; 81003; 81015; 85025; J1885

== ENCOUNTER 2020-08-07 20:21 | Outpatient (REF) | payer SELFPAY ==
[2020-08-08 18:22] LABS: COVID-19 RT-PCR UVMMC Result Negative (Negative)
== END 2020-08-07 20:41 ==
LOC: LBN 20:21
PROVIDERS: PCP Nurse Practitioner; Visit Provider Nurse Practitioner Family
DX: Z11.52 Encounter for screening for COVID-19 (principal)
CPT/HCPCS: U0003

== ENCOUNTER 2020-08-24 11:37 | Emergency (ER) | payer MEDICAID, SELFPAY ==
[2020-08-24 11:41] VITALS: BP 146/88; PULSE 111; TEMP 36.3; O2SAT 97
--- NOTE | 2020-08-24 11:53 | ED.GENADUL_ITS ---
Discharge Plan Disposition Patient Disposition: HOME Condition: Stable Discharge Details Clinical Impression: Traumatic seroma of right thigh Primary Care Provider: Karlie Tobar ED Provider: Elsa Thorne Home Meds and New Rx's Prescriptions: New cephalexin 500 mg tablet 500 mg PO QID 10 Days Qty: 40 RF: 0 No Action albuterol sulfate [ProAir HFA] 90 mcg/actuation HFA aerosol inhaler 2 inh inhalation Q4H Qty: 18 RF: 6 ibuprofen [IBU] 600 mg tablet 600 mg PO QID PRN (Reason: pain) Qty: 14 RF: 0 omeprazole 40 mg Capsule,Delayed Release(Dr/Ec) 40 mg PO BID RF: 0 Discharge Instructions Instructions: Abscess Incision and Drainage (DC), Seroma (DC) Additional Instructions: Follow instructions as instructed by orthopedic surgeon Dr. Foley. Rest, ice, compression, elevation. Take antibiotics as directed. Return to the ED for any worsening swelling, fever, chills or any concerns. Follow-up with orthopedics in the next 2 to 3 days. Follow up with primary care provider in 3-5 days. Return to ED sooner if any worsening or concerns. Increase oral fluids. Please take Tylenol or Ibuprofen with food every 4-6 hours as needed for pain and swelling. You were placed on care management list to assist with financial reporting consultant if needed. Referrals: Pratik Foley MD [ [facility] STAFF PHYSICIAN] - Medical Decision Making 30-year-old male presents to the ED with chief complaint of right posterior thigh swelling which began getting worse last 2 weeks ago after going to the gym. He states that he had a previous injury to that leg where he was seen at urgent care where he slipped through a ramp, he had a large hematoma that never completely went away and was golf ball sized. Upon initial exam dorsal pedal pulses are intact, he denies any significant numbness to his foot. He denies any calf tenderness. He does have tenderness to his posterior thigh surrounding swelling. He takes Tylenol every now and then but no blood thinners. He has a past medical history of tonsillectomy, kidney stones. Differential diagnosis includes but not limited to venous bleed posterior thigh, arterial bleed posterior thigh, abscess, FINDINGS: Right femoral/popliteal arteries: No occlusion or significant stenosis. Right infrapopliteal arteries: No occlusion or significant stenosis. Bones/joints: No acute fracture. No dislocation. Soft tissues: Fluid collection in the posteromedial right inferior thigh measuring 6.2 x 4.2 x 7.8 cm. There is some air present within this collection. Findings are consistent with a large hematoma/seroma or developing abscess. Prominent right inguinal lymph node. IMPRESSION: 1. Unremarkable CTA extremity. No arterial extravasation. No evidence of active bleeding. ELIDA CAMPBELL Preliminary Radiology Report ELECTRICAL INSTALLER (QA) DISCREPANCY? If there is a discrepancy between the preliminary and final interpretation, please notify [facility] via [email or web address]. If you do not have access to our QA portal, call our QA team at [phone] CONFIDENTIALITY STATEMENT This report is intended only for the use of the referring physician, and only in accordance with law, If you received this in error, call [phone] Page 2 of 2 2. Large fluid collection in the posteromedial inferior thigh measuring 6.2 x 4.2 x 7.8 cm. Findings consistent with largest hematoma/seroma. There is some air in the collection. Cannot exclude developing abscess. 3. Findings were discussed with ELSA THORNE at 08/24/2020 1:29 PM EST CBC shows mild leukopenia at 11.41, absolute neutrophils 8.36, CMP shows glucose 115, AST 12, total protein 8.5 1352: Spoke with Dr. Foley orthopedics discussed patient case and details he recommended adding on inflammatory markers including CRP and sed rate, he agrees to come and see the patient. 1452: Dr. Foley is here at bedside for patient evaluation and will attempt to I&D hematoma/seroma/abscess. Patient instructed on RICE procedures at home, discuss strict return instructions, verbalized understanding. Patient was placed on cephalexin 500 mg 4 times daily, was given 4 tablets here in department. Rocephin 1 g was given IV piggyback. This text was generated using [employer] system, please disregard any oddities of phrase or misspellings. Patient was placed on care management list to assist with financial assistance. HPI General Mode of arrival: ambulatory . Date/Time Provider Initiated Documentation: 08/24/20 11:39 . Limitations to Documentation: no limitations . Information obtained by: patient . HPI Narrative: 30-year-old male presents to the ED with chief complaint of right posterior thigh swelling which began getting worse last 2 weeks ago after going to the gym. He states that he had a previous injury to that leg where he was seen at urgent care where he slipped through a ramp, he had a large hematoma that never completely went away and was golf ball sized. Upon initial exam dorsal pedal pulses are intact, he denies any significant numbness to his foot. He denies any calf tenderness. He does have tenderness to his posterior thigh surrounding swelling. He takes Tylenol every now and then but no blood thinners. He has a past medical history of tonsillectomy, kidney stones. Related Data Home Medications Medication Instructions Recorded Confirmed ibuprofen [IBU] 600 mg PO QID PRN #14 tab 04/07/18 08/24/20 albuterol sulfate 90 mcg/actuation 2 inh INHALATION Q4H #18 g 07/08/20 08/24/20 aerosol inhaler cephalexin 500 mg PO QID 10 Days #40 tab 08/24/20 omeprazole 40 mg PO BID 08/24/20 08/24/20 Previous Rx's Medication Instructions Recorded ibuprofen [IBU] 600 mg PO QID PRN #14 tab 04/07/18 albuterol sulfate 90 mcg/actuation 2 inh INHALATION Q4H #18 g 07/08/20 aerosol inhaler cephalexin 500 mg PO QID 10 Days #40 tab 08/24/20 Allergies Allergy/AdvReac Type Severity Reaction Status Date / Time No Known Allergies Allergy Unverified 08/24/20 11:47 General Stated Complaint: Orthopedic YOEL: 3 Review of Systems Narrative: Constitutional: Negative for weight loss, alert and oriented, well groomed, normal body habitus, appears comfortable. HEENT: Denies trauma, headaches, blurry vision, nasal discharge, sore throat, trouble swallowing. Chest: Denies chest pain, palpitations, irregular rhythm, hypertension. Respiratory: Denies Shortness of breath, cough, hemoptysis. GI: Denies abdominal pain, nausea, vomiting, diarrhea, constipation. : Denies dysuria, hematuria, flank pain, rectal bleeding. Extremities: Right lower extremity complaining of posterior thigh swelling and tenderness which has gotten worse over the last 2 weeks. Neuro: Denies dizziness, blurry vision, weakness, syncope, headache or facial numbness. Hematologic: Denies easy bruising, intolerance to heat or cold, hair loss. [facility] Medical History (Updated 08/24/20 @ 15:51 by Pratik Foley MD) Back pain Chronic rhinosinusitis GERD (gastroesophageal reflux disease) Surgical History Fx distal radium metaphysis (11/02/05) RIGHT Tonsillectomy (08/02/05) Dr. Perez Family History Mother Alcohol abuse Neoplasm uterine Father Neoplasm Grandfather Alcohol abuse Neoplasm colon Grandmother Neoplasm colon Maternal Aunt Alcohol abuse Grandmother Alcohol abuse Social History Smoking/Tobacco Use Status: Current every day Tobacco Type: e-cigarettes Smoking risk assessment performed?: Yes Alcohol Intake: current Alcohol Intake frequency: 0-2 drinks per day Alcohol type: beer Drug use: Occasionally Substance use type: marijuana Do you feel safe at home: Yes Do you feel safe in your relationship?: Yes Exam Narrative Exam Narrative: Constitutional: Alert and oriented x3. Appears stated age. Normal body habitus. Head: Normocephalic, no trauma. Eyes: Pupils PERRLA, Red reflex noted, EOM's intact. Eyelids symmetrical without lesions, discharge, or swelling. Chest: Tachycardia at 111, normal S1, S2, distal pulses intact. Resp: Lungs clear to auscultation bilaterally, no wheezes, rales, or rhonchi. Musculoskeletal: Right lower extremity posterior thigh has significant swelling, tenderness, warmth no right calf pain. Skin: Capillary refill less than 2 sec. warmth and tenderness noted over her right posterior thigh. Neurologic: Cranial nerves II-XII intact. Alert and oriented x 3. Intact dorsal pedal pulses right lower extremity Hematologic/Lymphatic: No ecchymosis, no lymphadenopathy. Course Vital Signs Vital signs: Vital Signs Temperature 36.3 C L 08/24/20 11:41 Pulse 111 H 08/24/20 11:41 Blood Pressure 146/88 H 08/24/20 11:41 Pulse Oximetry 97 08/24/20 11:41 Temperature 36.3 C L 08/24/20 11:41 Temperature Source Temporal Artery Scan 08/24/20 11:41 Pulse 111 H 08/24/20 11:41 Respiratory Effort Non-Labored 08/24/20 11:45 Blood Pressure 146/88 H 08/24/20 11:41 Blood Pressure Position Sitting 08/24/20 11:41 Pulse Oximetry 97 08/24/20 11:41 Oxygen Delivery Method Room Air 08/24/20 11:41 Oxygen Flow Rate 0 08/24/20 11:41 Pain Level 8 08/24/20 11:41
[2020-08-24 12:10] LABS: Abs Immature Grans 0.03 10^3/uL (0.0-0.06); Absolute Basophil Count 0.02 10^3/uL (0.0-0.2); Absolute Eosinophil Count 0.13 10^3/uL (0.0-0.7); Absolute Lymphocyte Count 1.99 10^3/uL (1.2-3.4); Absolute Monocyte Count 0.88 10^3/uL (0.1-0.8); Absolute Neutrophil Count 8.36 10^3/uL (1.2-6.7); Basophils % 0.2; Eosinophils % 1.1; HGB 14.7 g/dL (13.5-17.5); Immature Grans % 0.3; Lymphocytes % 17.4; MCH 31.1 pg (27.0-33.0); MCHC 34.2 % (32.0-36.0); MCV 90.9 fL (80-95); MPV 9.4 fL (8.0-11.0); Monocytes % 7.7; Neutrophils % 73.3; Nucleated RBC 0 %; Platelet Count 305 10^3/uL (130-400); RBC 4.73 10^6/uL (4.36-5.78); RDW 11.5 % (11.8-14.1); RDW-SD 38.6 fL; WBC 11.41 10^3/uL (4.4-10.8)
[2020-08-24] MEDS: Normal Saline 250 ML IV (12:15)
--- NOTE | 2020-08-24 12:17 | NUR.NOTE ---
Referral to Care Management, patient needs help with resources such as insurance and financial aid coordinator.Nursing Note:
[2020-08-24] MEDS: fentaNYL 100 MCG/2 ML VIAL 50 MCG IVP (12:20)
[2020-08-24] MEDS: Ondansetron 4 MG/2 ML VIAL IVP (12:20)
[2020-08-24 12:21] LABS: Prothrombin Time 10.4 sec (9.3-11.0)
[2020-08-24 12:26] LABS: ALT 30 U/L (16-63); AST 12 U/L (15-37); Albumin 3.6 g/dL (3.4-5.0); Alkaline Phosphatase 74 U/L (46-116); Anion Gap 10.7 mmol/L (3-11); BUN 9 mg/dL (7-18); Bilirubin, Total 0.8 mg/dL (0.2-1.0); CO2 26.3 mmol/L (21.0-32.0); CREATININE 0.9 mg/dL (0.70-1.30); Calcium 9.4 mg/dL (8.5-10.1); Chloride 102 mmol/L (98-107); Glucose 115 mg/dL (74-106); Potassium 3.9 mmol/L (3.5-5.1); Sodium 139 mmol/L (136-145); Total Protein 8.5 g/dL (6.4-8.2)
[2020-08-24 13:09] VITALS: BP 128/84; PULSE 102; RESP 18; O2SAT 97
[2020-08-24] MEDS: Normal Saline - Diluent 50 ML VIAL IV (13:11)
[2020-08-24] MEDS: Omnipaque 350 MG/ML 50 ML BTL IJ (13:12)
[2020-08-24] MEDS: Omnipaque 350 MG/ML 100 ML BTL IJ (13:12)
--- NOTE | 2020-08-24 13:13 | DI.CT_ITS ---
EXAM: CT LOWER EXTREMITY RT CTA CLINICAL HISTORY: R/O venous/arterial bleed right thigh TECHNIQUE: IV contrast: Omnipaque 350-[address] angiography performed from the lower pelvis level to the level of the mid calf. COMPARISON: CT CT renal colic wo from 11/07/2018 FINDINGS: ARTERIES: There is a no significant atherosclerotic disease/narrowing of the visualized right externa l iliac artery, right common femoral artery, right SFA, right popliteal artery, right tibioperoneal t runk and there appears to be patent 3 vessel runoff in the upper right calf included in the field of view. No evidence of popliteal artery aneurysm. Profundal femora starter E is also demonstrated to be patent. SOFT TISSUES: There is an abnormal fluid collection in the posterior medial aspect of the right thigh overlying the hamstrings muscle group, but confined to the deep subcutaneous tissue, this abnormal f luid collection measuring approximately 6 by 8 x 4.3 cm and appearing relatively well-defined and wit h overlying skin thickening and surrounding inflammatory streaking in the subcutaneous fat. There is no associated rib radiopaque foreign body. First consideration here is to rule out abscess. OSSEOUS: No fractures evident. No significant osseous lesions in the field of view. No evidence of knee joint effusion. No evidence of osteomyelitis. IMPRESSION: 1. The main finding here is a prominent 6 x 8 x 4.3 cm abnormal fluid collection in the posterior-med ial right thigh as described above which extends from the skin down to the deep subcutaneous tissue b ut does not invade the subjacent hamstring muscle group. There is surrounding fat streaking. First consideration is for abscess. 2. No significant atherosclerotic nor other findings in the visualized arteries of the ipsilateral ri ght lower extremity described above, inclusive from the mid right external iliac artery down to the u pper right calf. There is also no evidence of aneurysm of the popliteal artery.
--- NOTE | 2020-08-24 13:30 | DI.VRAD_ITS ---
PROCEDURE INFORMATION: Exam: CTA Right Lower Extremity With Contrast Exam date and time: 08/24/2020 12:21 PM Age: 30 years old Clinical indication: Pain; Thigh; Right; Patient HX: Bruising swelling -. Protocoled per [facility] TECHNIQUE: Imaging protocol: CTA images of the Right lower extremity with intravenous contrast using CT angiography protocol. 3D rendering (Not supervised by radiologist): MIP and/or 3D reconstructed images were created by the technologist. Radiation optimization: All CT scans at this facility use at least one of these dose optimization techniques: automated exposure control; mA and/or kV adjustment per patient size (includes targeted exams where dose is matched to clinical indication); or iterative reconstruction. Contrast material: OMNI 350; Contrast volume: 125 ml; Contrast route: INTRAVENOUS (IV); COMPARISON: No relevant prior studies available. FINDINGS: Right femoral/popliteal arteries: No occlusion or significant stenosis. Right infrapopliteal arteries: No occlusion or significant stenosis. Bones/joints: No acute fracture. No dislocation. Soft tissues: Fluid collection in the posteromedial right inferior thigh measuring 6.2 x 4.2 x 7.8 cm. There is some air present within this collection. Findings are consistent with a large hematoma/seroma or developing abscess. Prominent right inguinal lymph node. IMPRESSION: 1. Unremarkable CTA extremity. No arterial extravasation. No evidence of active bleeding. 2. Large fluid collection in the posteromedial inferior thigh measuring 6.2 x 4.2 x 7.8 cm. Findings consistent with largest hematoma/seroma. There is some air in the collection. Cannot exclude developing abscess. 3. Findings were discussed with HUDSON THORNE at 08/24/2020 1:29 PM EST. Dictated and Authenticated by: Phoenix Hagen MD. Ordering:KIMBERLEY Hunter MD
[2020-08-24 14:10] LABS: C-Reactive Protein 6.86 mg/dL (0.0-0.3)
[2020-08-24] MEDS: cefTRIAXone 1 GM/50 ML BAG IVPB (15:06)
[2020-08-24 15:08] VITALS: BP 139/81; PULSE 96; RESP 18; O2SAT 97
[2020-08-24] MEDS: Cephalexin 500 MG CAP, 4 CAPS/BTL PO (15:28)
[2020-08-24 15:31] VITALS: BP 135/75; PULSE 89; TEMP 37.2; O2SAT 96
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
--- NOTE | 2020-08-25 11:05 | CMPROGNOTE_ITS ---
- If Service Date Differs Date of service: 08/25/20 Time of Service: 11:05 Care Management Progress Note Parag was seen in the ED on 08/24/2020 for a traumatic seroma of the right thigh. At the request of ED provider, ALISON outreaches to Parag by telephone to offer assistance with financial resources. Parag states he has already been in touch with [employer] and has started the health insurance application process. He has also applied for financial assistance through [facility] and has qualified for Financial Asst 70.
== END 2020-08-24 15:36 | disposition home or self-care (01) ==
PROVIDERS: Emergency Provider Registered Nurse Emergency; PCP Nurse Practitioner
DX: S80.01XA Contusion of right knee, initial encounter (principal); X58.XXXA Exposure to other specified factors, initial encounter; L02.415 Cutaneous abscess of right lower limb; B96.89 Other specified bacterial agents as the cause of diseases classified elsewhere
CPT/HCPCS: 10060; 73706; 80053; 85652; 87040; 96360; 96375; 99253; 99285; 85025; 85610; 86140; 87070; 87205; 99284; J0696; J2405; J3010; J3490; Q9967

== ENCOUNTER 2020-09-02 19:32 | Outpatient (CLI) | payer MEDICAID, SELFPAY ==
--- NOTE | 2020-09-02 13:45 | DI.MRI_ITS ---
EXAM: MR LOWER EXTREMITY RT WO CLINICAL HISTORY: CRUZ JEFFREY LESION, hematoma, T14.8XXA TECHNIQUE: Multiplanar multisequence MRI was performed. COMPARISON: No exams were available for comparison FINDINGS: MARROW:The visualized femur reveals no evidence of fracture no nor marrow edema. There is no promine nt ipsilateral knee joint effusion. EXTRAMUSCULAR SOFT TISSUES: There is skin thickening and subcutaneous emphysema over the posterior me dial aspect of the thigh with a fluid collection extending from the subcutaneous tissues down to the deep fascia superficial to the hamstring muscle layer. This collection measures approximately 6 by 6 x 7 cm. In addition to fat it contains a gas bubble within air-fluid level. This finding is suspic ious for abscess. MUSCLES: The signal abnormality described above does not extend into the subjacent hamstrings muscle group. OTHER: None. IMPRESSION: 1. There is a complex 7 x 6 x 6 cm fluid collection superficial to the deep fascia within the medial posterior right thigh as described above. There appears to be a gas bubble within this fluid collect ion and therefore abscess formation is a significant consideration here. 2. There is no abnormal signal in the subjacent musculature-hamstrings group. 3. No abnormal marrow signal in the femur. DATA REPOSITORY:
--- NOTE | 2020-09-02 16:53 | DI.VRAD_ITS ---
PROCEDURE INFORMATION: Exam: MR Right Lower Extremity Without Contrast, Femur Exam date and time: 09/02/2020 4:20 PM Age: 30 years old Clinical indication: Thigh; Right; Patient HX: Hematoma from fall last April, now mass has grown considerably and become very painful, I see the on the cc the HEEC all shoes is see his his cyst is he he the huge is on is the is TECHNIQUE: Imaging protocol: MR of the Right femur without contrast. COMPARISON: CT LOWER EXTREMITY RT CTA 08/24/2020 12:31 PM FINDINGS: Bones/joints: The bone marrow signal of the femur appears normal. No evidence of osteomyelitis. Muscles: The hamstring muscle is deep to the lesion do not appear to be involved with the lesion. Soft tissues: There is a complex cystic lesion corresponding to the area of palpable mass within the medial aspect of the right thigh measuring 7.1 cm in transverse diameter, 6.2 cm in craniocaudal diameter, and 6.1 cm in AP diameter. There are small scattered foci which are isointense to fat which appears to be interspersed with the fluid component of the lesion. There is a area of signal void within the nondependent aspect of the cyst with an air-fluid level consistent with gas formation. This fluid collection is a located immediately superficial to the deep fascia consistent with the clinical history of a Grimes-Lavall?e lesion. IMPRESSION: Complex 7.1 x 6.2 x 6.1 cm fluid collection containing gas located superficial to the deep fascia within the medial aspect of the right thigh. 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 Most commonly, this is a sterile fluid collection. However, the presence of gas raises the possibility of infection with abscess formation. Surgical drainage may be indicated. Dictated and Authenticated by: Phoenix Guadrado MD. Ordering:MIKAEL Christie MD
== END 2020-09-02 19:33 ==
LOC: DI 09-04 19:34
PROVIDERS: PCP Nurse Practitioner; Visit Provider Student in an Organized Health Care Education/Training Program
DX: S70.11XA Contusion of right thigh, initial encounter (principal); L02.415 Cutaneous abscess of right lower limb; X58.XXXA Exposure to other specified factors, initial encounter
CPT/HCPCS: 73718

== ENCOUNTER 2020-09-03 12:47 | Day surgery (SDC) | payer MEDICAID, SELFPAY ==
--- NOTE | 2020-09-03 08:18 | W.PM.DSUDISC ---
Documented by User: Yudi Robles 09/03/20 08:22 Discharge Plan Disposition Patient Disposition: HOME Condition: Good Discharge Details Reason For Visit: Right akhtar awais lesion; right thigh abscess Attending Provider: Pratik Foley Primary Care Provider: Karlie Tobar Home Meds and New Rx's Prescriptions: New hydrocodone-acetaminophen 5-325 mg tablet 1 tab PO Q6H PRN (Reason: pain) Qty: 6 RF: 0 ibuprofen 600 mg tablet 600 mg PO TID PRN (Reason: pain) Qty: 30 RF: 0 acetaminophen 500 mg capsule 1,000 mg PO Q8H PRN PRNQty: 90 RF: 0 Continued albuterol sulfate [ProAir HFA] 90 mcg/actuation HFA aerosol inhaler 2 inh inhalation Q4H Qty: 18 RF: 6 ciprofloxacin HCl [Cipro] 500 mg tablet 500 mg PO BID Qty: 10 RF: 0 omeprazole 40 mg Capsule,Delayed Release(Dr/Ec) 40 mg PO BID RF: 0 Discontinued ibuprofen [IBU] 600 mg tablet 600 mg PO QID PRN (Reason: pain) Qty: 14 RF: 0 Discharge Instructions Additional Instructions: Hip Abscess Irrigation and Debridement Discharge Instructions Activity: You may move and walk as tolerated. You should try to take short walks a few times a day. You have no restrictions on movement or positioning, but do not try to force what you do. You will find some stiffness and weakness. Dressing: Keep the surgical dressing in place for at least one week. The suction should continue. If the light changes to red, then please contact the office. After the first week the dressing may be removed and replace with light gauze and tape or nothing. It may get wet after 3 days but avoid soaking the dressing. If it gets wet, just lightly pat dry. It is okay to keep some compression with an CAROLINE wrap on the wound. Medications: - You should take Tylenol and an anti-inflammatory Ibuprofen as your primary pain control medications - You have been prescribed a stronger pain medication Hydrocodone for breakthrough pain, take as needed as prescribed. - Continue the antibiotic that you were prescribed. - If you have constipation you should take Colace or Miralax (both [id number]). It takes most people 3-4 days to have a bowel movement. Follow-up: 2 weeks Stand Alone Forms: Anesthesia Discharge Inst., DSU Post op Instructions Referrals: Pratik Foley MD [ [facility] STAFF PHYSICIAN] - Activity:: Elevate Remove Dressings/Wound Care:: Do Not Remove Shower/Bathe:: 72 hours Diet:: As Tolerated Discharge Orders Discharge Orders: Discharge Order (Routine); Ordered 09/03/20 Ordered By: Yudi Robles DS: Diagnosis Discharge Diagnosis (1) Abscess of right thigh: Status: Acute (2) Akhtar Awais lesion: Status: Acute Documented by User: GILL Carmona 09/03/20 10:30 Discharge Plan Disposition Patient Disposition: HOME Condition: Good Discharge Details Reason For Visit: Right akhtar awais lesion; right thigh abscess Attending Provider: Pratik Foley Primary Care Provider: Karlie Tobar Home Meds and New Rx's Prescriptions: New hydrocodone-acetaminophen 5-325 mg tablet 1 tab PO Q6H PRN (Reason: pain) Qty: 6 RF: 0 ibuprofen 600 mg tablet 600 mg PO TID PRN (Reason: pain) Qty: 30 RF: 0 acetaminophen 500 mg capsule 1,000 mg PO Q8H PRN PRNQty: 90 RF: 0 Continued albuterol sulfate [ProAir HFA] 90 mcg/actuation HFA aerosol inhaler 2 inh inhalation Q4H Qty: 18 RF: 6 ciprofloxacin HCl [Cipro] 500 mg tablet 500 mg PO BID Qty: 10 RF: 0 omeprazole 40 mg Capsule,Delayed Release(Dr/Ec) 40 mg PO BID RF: 0 Discontinued ibuprofen [IBU] 600 mg tablet 600 mg PO QID PRN (Reason: pain) Qty: 14 RF: 0 Discharge Instructions Additional Instructions: Hip Abscess Irrigation and Debridement Discharge Instructions Activity: You may move and walk as tolerated. You should try to take short walks a few times a day. You have no restrictions on movement or positioning, but do not try to force what you do. You will find some stiffness and weakness. Dressing: Keep the surgical dressing in place for at least one week. The suction should continue. If the light changes to red, then please contact the office. After the first week the dressing may be removed and replace with light gauze and tape or nothing. It may get wet after 3 days but avoid soaking the dressing. If it gets wet, just lightly pat dry. It is okay to keep some compression with an CAROLINE wrap on the wound. Medications: - You should take Tylenol and an anti-inflammatory Ibuprofen as your primary pain control medications - You have been prescribed a stronger pain medication Hydrocodone for breakthrough pain, take as needed as prescribed. - Continue the antibiotic that you were prescribed. - If you have constipation you should take Colace or Miralax (both [id number]). It takes most people 3-4 days to have a bowel movement. Follow-up: 2 weeks Stand Alone Forms: Anesthesia Discharge Inst., DSU Post op Instructions Referrals: Pratik Foley MD [ [facility] STAFF PHYSICIAN] - Activity:: Elevate Remove Dressings/Wound Care:: Do Not Remove Shower/Bathe:: 72 hours Diet:: As Tolerated Discharge Orders Discharge Orders: Discharge Order (Routine); Ordered 09/03/20 Ordered By: Yudi Robles Documented by User: Pratik Foley MD 09/03/20 17:58 Discharge Plan Disposition Patient Disposition: HOME Condition: Good Discharge Details Reason For Visit: Right akhtar awais lesion; right thigh abscess Attending Provider: Pratik Foley Primary Care Provider: Karlie Tobar Home Meds and New Rx's Prescriptions: New hydrocodone-acetaminophen 5-325 mg tablet 1 tab PO Q6H PRN (Reason: pain) Qty: 6 RF: 0 ibuprofen 600 mg tablet 600 mg PO TID PRN (Reason: pain) Qty: 30 RF: 0 acetaminophen 500 mg capsule 1,000 mg PO Q8H PRN PRNQty: 90 RF: 0 Continued albuterol sulfate [ProAir HFA] 90 mcg/actuation HFA aerosol inhaler 2 inh inhalation Q4H Qty: 18 RF: 6 ciprofloxacin HCl [Cipro] 500 mg tablet 500 mg PO BID Qty: 10 RF: 0 omeprazole 40 mg Capsule,Delayed Release(Dr/Ec) 40 mg PO BID RF: 0 Discontinued ibuprofen [IBU] 600 mg tablet 600 mg PO QID PRN (Reason: pain) Qty: 14 RF: 0 Discharge Instructions Additional Instructions: Hip Abscess Irrigation and Debridement Discharge Instructions Activity: You may move and walk as tolerated. You should try to take short walks a few times a day. You have no restrictions on movement or positioning, but do not try to force what you do. You will find some stiffness and weakness. Dressing: Keep the surgical dressing in place for at least one week. The suction should continue. If the light changes to red, then please contact the office. After the first week the dressing may be removed and replace with light gauze and tape or nothing. It may get wet after 3 days but avoid soaking the dressing. If it gets wet, just lightly pat dry. It is okay to keep some compression with an CAROLINE wrap on the wound. Medications: - You should take Tylenol and an anti-inflammatory Ibuprofen as your primary pain control medications - You have been prescribed a stronger pain medication Hydrocodone for breakthrough pain, take as needed as prescribed. - Continue the antibiotic that you were prescribed. - If you have constipation you should take Colace or Miralax (both [id number]-[id number]). It takes most people 3-4 days to have a bowel movement. Follow-up: 2 weeks Stand Alone Forms: Anesthesia Discharge Inst., DSU Post op Instructions Referrals: Pratik Foley MD [ [facility] STAFF PHYSICIAN] - Activity:: Elevate Remove Dressings/Wound Care:: Do Not Remove Shower/Bathe:: 72 hours Diet:: As Tolerated Discharge Orders Discharge Orders: Discharge Order (Routine); Ordered 09/03/20 Ordered By: Yudi Robles
[2020-09-03 13:29] VITALS: BP 119/78; PULSE 97; RESP 16; TEMP 36.6; O2SAT 96
[2020-09-03] MEDS: Lactated Ringers 1,000 ML 80 ML IV (13:55)
[2020-09-03 13:57] LABS: Influenza A PCR Negative (Negative); Influenza B PCR Negative (Negative); RSV PCR Negative (Negative)
[2020-09-03 14:01] LABS: COVID-19 PCR Negative (Negative)
[2020-09-03] MEDS: Celecoxib 200 MG CAP 400 MG PO (14:06)
[2020-09-03] MEDS: Acetaminophen 500 MG TAB 1000 MG PO (14:06)
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
[2020-09-03] MEDS: ceFAZolin 3,000 MG in Normal Saline 100 ML 200 MG IVPB (16:21)
[2020-09-03] MEDS: Bupivacaine 0.25% Pres-Free 30 ML VIAL (16:40)
[2020-09-03 17:30] VITALS: BP 106/72; PULSE 79; RESP 17; TEMP 36.3; O2SAT 97
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
== END 2020-09-03 17:57 | disposition home or self-care (01) ==
LOC: SUR 12:47
PROVIDERS: PCP Nurse Practitioner; Visit Provider Student in an Organized Health Care Education/Training Program
PROC: 0JBL0ZZ Excision of Right Upper Leg Subcutaneous Tissue and Fascia, Open Approach (ICD-10-PCS; CPT 27301; principal; 2020-09-03 16:00)
DX: L02.415 Cutaneous abscess of right lower limb (principal); S70.11XS Contusion of right thigh, sequela; K21.9 Gastro-esophageal reflux disease without esophagitis
CPT/HCPCS: 27301; 87077; NC; 87070; 87075; 87186; 87205; J0690; J1885; J2001; J2250; J2405

== ENCOUNTER 2020-11-12 04:12 | Outpatient (CLI) | payer MEDICAID, SELFPAY ==
[2020-11-13 11:49] LABS: COVID-19 RT-PCR UVMMC Result Negative (Negative)
== END 2020-11-12 04:13 | disposition home or self-care (01) ==
LOC: LBO 04:12
PROVIDERS: PCP Nurse Practitioner; Visit Provider Nurse Practitioner
DX: Z20.822 Contact with and (suspected) exposure to COVID-19 (principal)
CPT/HCPCS: U0003

== ENCOUNTER 2021-01-28 11:09 | Emergency (ER) | payer MEDICAID, SELFPAY ==
[2021-01-28 11:12] VITALS: BP 160/74; PULSE 78; TEMP 36.8; O2SAT 99
--- NOTE | 2021-01-28 11:20 | ED.GENADUL_ITS ---
"Discharge Plan Disposition Patient Disposition: HOME Condition: Stable Discharge Details Clinical Impression: Back pain Primary Care Provider: Karlie Tobar ED Provider: Redd Lea Home Meds and New Rx's Prescriptions: New cyclobenzaprine 5 mg tablet 5 mg PO TID PRNQty: 10 RF: 0 Continued ibuprofen 600 mg tablet 600 mg PO TID PRN (Reason: pain) Qty: 30 RF: 0 acetaminophen 500 mg capsule 1,000 mg PO Q8H PRN PRNQty: 90 RF: 0 Discharge Instructions Instructions: Back Pain (ED) Additional Instructions: Cyclobenzaprine as directed, this medication may cause drowsiness. Continue with [id number] Tylenol and/or Motrin as directed for discomfort. Gentle stretching as tolerated. Cool and/or warm compresses every 2 hours for 20 minutes. Please watch for new or worsening symptoms and return to the ER for any concerns. I would like you to recheck your primary care provider later today or tomorrow to discuss your ongoing symptoms and need for outpatient reevaluation. Discharge Data Discharge Date/Time-TO BE ENTERED AT DEPARTURE: 01/28/21 12:36 Medical Decision Making 30-year-old male, history of low back issues, presents with acute issue after being pulled by his dog while holding a leash. He denies any numbness, tingling, weakness, saddle paresthesias, bowel or bladder incontinence and/or retention. Patient states that he now has insurance and plans to follow with his primary care provider for his ongoing back issues. 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 Clinically this appears to be musculoskeletal. Neuro, vascular, tendon intact. Denies IV drug history. No evidence of cauda equina. No clear indication for emergent laboratory values or imaging. Will provide IM Toradol and topical Lidoderm patches. Recommend that he follow-up with his primary care provider. We discussed imdu-cay-grhebhl Tylenol and/or Motrin as well as compresses. I will provide him a prescription for short-term Flexeril, we did discuss this may cause drowsiness, no drinking alcohol or using heavy machinery while on this medication. We also discussed the potential need for physical therapy, he will discuss with his primary care provider. Patient has no additional questions or concerns and is comfortable with discharge. Standard discharge and return precautions given. This documentation was generated using [employer] | [employer] dictation system, please disregard any oddities of phrase or misspellings. Medical Records Medical records reviewed: Yes I reviewed the patient's medical records. HPI General Mode of arrival: ambulatory . Date/Time Provider Initiated Documentation: 01/28/21 11:09 . Limitations to Documentation: no limitations . Information obtained by: patient . HPI Narrative: This is a 30-year-old gentleman, past medical history of chronic low back pain, GERD, obesity, former smoker, presents to the ER reporting acute on chronic back pain. Patient states yesterday he was bringing his large dog, around 120 pounds, today that yesterday, was bent over holding onto the dog leash when the dog began to run causing him to be pulled forward and sideways. He reports diffuse bilateral lower back discomfort, yesterday had some radiation into both of his buttocks but today there is no radiation stays directly in his back. Patient denies fever, IV drug use, abdominal pain, bowel or bladder issues, numbness, tingling or weakness in his legs. Patient tells me that he now has insurance and will look into his chronic back pain with his primary care provider but he just began a new job and is hoping that we can relieve his symptoms so that he can work this weekend. Related Data Home Medications Medication Instructions Recorded Confirmed acetaminophen 1,000 mg PO Q8H PRN PRN #90 cap 09/03/20 01/28/21 ibuprofen 600 mg PO TID PRN #30 tab 09/03/20 01/28/21 cyclobenzaprine 5 mg PO TID PRN #10 tab 01/28/21 Previous Rx's Medication Instructions Recorded acetaminophen 1,000 mg PO Q8H PRN PRN #90 cap 09/03/20 ibuprofen 600 mg PO TID PRN #30 tab 09/03/20 cyclobenzaprine 5 mg PO TID PRN #10 tab 01/28/21 Allergies Allergy/AdvReac Type Severity Reaction Status Date / Time No Known Allergies Allergy Unverified 01/28/21 11:18 General Stated Complaint: Nk/Back Pain YOEL: 4 Review of Systems Constitutional Constitutional: Denies fever(s) and Denies weakness Gastrointestinal Gastrointestinal: Denies abdominal pain, Denies nausea and Denies vomiting Genitourinary Genitourinary: Denies dysuria, Denies urinary hesitancy and Denies urinary incontinence Musculoskeletal Musculoskeletal: Reports back pain, Denies deformity, Denies arthralgias, Denies numbness, Reports stiffness and Denies tingling Integumentary/Breasts Skin/Breast: Denies rash Neurologic Neurologic: Denies numbness, Denies tingling and Denies weakness [facility] Medical History Back pain Chronic rhinosinusitis GERD (gastroesophageal reflux disease) Surgical History Fx distal radium metaphysis (11/02/05) RIGHT Tonsillectomy (08/02/05) Dr. Perez Family History Mother Alcohol abuse Neoplasm uterine Father Neoplasm Grandfather Alcohol abuse Neoplasm colon Grandmother Neoplasm colon Maternal Aunt Alcohol abuse Grandmother Alcohol abuse Social History Smoking/Tobacco Use Status: Former Tobacco Use Quit Date: 12/10/19 Smoking risk assessment performed?: Yes Alcohol Intake: current Alcohol Intake frequency: 0-2 drinks per day Alcohol type: beer Drug use: Occasionally Substance use type: marijuana Details: Last smoked yesterday. Current gender identity: male Do you feel safe at home: Yes Do you feel safe in your relationship?: Yes Exam Const General: cooperative, healthy appearing, comfortable and no acute distress Orientation: alert and awake HENMT Head: normal to inspection, normocephalic and atraumatic Eyes General: appearance normal, both eyes and all related structures Conjunctivae: conjunctivae normal Neck Neck: normal visual inspection, trachea midline and supple Resp Effort & Inspection: normal respiratory effort and able to speak in complete sentences Auscultation: clear to auscultation bilaterally Cardio Rate: regular rate Rhythm: regular rhythm GI Palpation: soft and nontender Back/Spine/Pelvis Back: no CVA tenderness and back tenderness (Diffuse, mild lumbar. No bony point tenderness) Thoracic/Lumbar Spine: straight leg raise positive (Bilaterally 10 degrees) Skin General skin exam: no rashes or lesions noted Neuro General: patient alert, patient awake, moves all extremities and no focal motor deficits Sensory Exam: no sensory deficits noted Psych Appearance: grossly normal Mental Status: mental status grossly normal Course Vital Signs Vital signs: Vital Signs Temperature 36.8 C 01/28/21 11:12 Pulse 78 01/28/21 11:12 Blood Pressure 160/74 H 01/28/21 11:12 Pulse Oximetry 99 01/28/21 11:12 Temperature 36.8 C 01/28/21 11:12 Temperature Source Temporal Artery Scan 01/28/21 11:12 Pulse 78 01/28/21 11:12 Respiratory Effort Non-Labored 01/28/21 11:17 Blood Pressure 160/74 H 01/28/21 11:12 Blood Pressure Position Sitting 01/28/21 11:12 Pulse Oximetry 99 01/28/21 11:12 Oxygen Delivery Method Room Air 01/28/21 11:12 Oxygen Flow Rate 0 01/28/21 11:12 Pain Level 10 01/28/21 11:12"
[2021-01-28] MEDS: Ketorolac 60 MG/2 ML VIAL IM (12:00)
== END 2021-01-28 12:36 | disposition home or self-care (01) ==
PROVIDERS: Emergency Provider Physician Assistant; PCP Nurse Practitioner
DX: M54.5 Low back pain (principal)
CPT/HCPCS: 96372; 99284; 99283; J1885

== ENCOUNTER 2021-04-07 14:44 | Outpatient (REF) | payer MEDICAID, SELFPAY ==
[2021-04-09 10:49] LABS: COVID-19 RT-PCR UVMMC Result Negative (Negative)
== END 2021-04-07 14:45 | disposition home or self-care (01) ==
LOC: LBN 14:44
PROVIDERS: PCP Nurse Practitioner; Visit Provider Nurse Practitioner Family
DX: Z20.822 Contact with and (suspected) exposure to COVID-19 (principal)
CPT/HCPCS: U0003

== ENCOUNTER 2021-05-15 03:42 | Outpatient (CLI) | payer MEDICAID, SELFPAY ==
[2021-05-15 09:38] LABS: HCT 48.8 % (40.0-50.0); HGB 16.2 g/dL (13.5-17.5); MCHC 33.2 % (32.0-36.0); MCV 93.3 fL (80-95); MPV 9.6 fL (8.0-11.0); Platelet Count 268 10^3/uL (130-400); RBC 5.23 10^6/uL (4.36-5.78); RDW 11.7 % (11.8-14.1); RDW-SD 40.2 fL; WBC 9.21 10^3/uL (4.4-10.8)
[2021-05-15 09:57] LABS: Hemoglobin A1C 5.1 % (<5.7)
[2021-05-15 10:55] LABS: ALT 42 U/L (16-63); AST 16 U/L (15-37); Albumin 4.3 g/dL (3.4-5.0); Alkaline Phosphatase 80 U/L (46-116); Anion Gap 10.3 mmol/L (3-11); BUN 15 mg/dL (7-18); Bilirubin, Total 0.4 mg/dL (0.2-1.0); CO2 28.7 mmol/L (21.0-32.0); CREATININE 1.1 mg/dL (0.70-1.30); Calcium 9.2 mg/dL (8.5-10.1); Calculated LDL 120 mg/dL (<100); Chloride 103 mmol/L (98-107); Cholesterol 191 mg/dL (<200); Glucose 101 mg/dL (74-106); HDL Cholesterol 43 mg/dL (40-60); Potassium 4.5 mmol/L (3.5-5.1); Sodium 142 mmol/L (136-145); Total Protein 8.1 g/dL (6.4-8.2); Triglyceride 143 mg/dL (<150)
[2021-05-21 10:30] LABS: Result Summary NEGATIVE; Specimen WB Whole Blood
== END 2021-05-15 03:43 | disposition home or self-care (01) ==
LOC: LBO 03:42
PROVIDERS: PCP Nurse Practitioner; Visit Provider Nurse Practitioner
DX: R73.01 Impaired fasting glucose (principal); K21.9 Gastro-esophageal reflux disease without esophagitis; Z13.220 Encounter for screening for lipoid disorders; Z13.228 Encounter for screening for other metabolic disorders
CPT/HCPCS: 36415; 80053; 80061; 85027; 81220; 83036

== ENCOUNTER 2021-08-10 09:44 | Outpatient (REF) | payer MEDICAID, SELFPAY | END 2021-08-10 09:45 | disposition home or self-care (01) | LOC: LBN 09:44 | PROVIDERS: PCP Nurse Practitioner; Visit Provider Nurse Practitioner | DX: R30.0 Dysuria (principal) | CPT/HCPCS: 87086 ==

== ENCOUNTER 2021-08-11 21:59 | Outpatient (REF) | payer MEDICAID, SELFPAY ==
[2021-08-12 14:26] LABS: Chlamydia Result Negative (Negative); GC Result Negative (Negative)
== END 2021-08-11 22:00 | disposition home or self-care (01) ==
LOC: LBN 21:59
PROVIDERS: PCP Nurse Practitioner; Visit Provider Nurse Practitioner
DX: R30.0 Dysuria (principal); Z11.3 Encounter for screening for infections with a predominantly sexual mode of transmission
CPT/HCPCS: 87491; 87591

== ENCOUNTER 2021-08-28 01:06 | Outpatient (CLI) | payer MEDICAID, SELFPAY ==
[2021-08-28 13:02] LABS: Source Nasal/Nares
[2021-08-28 17:42] LABS: COVID-19 PCR Negative (Negative)
== END 2021-08-28 01:07 | disposition home or self-care (01) ==
LOC: LBO 01:06
PROVIDERS: PCP Nurse Practitioner; Visit Provider Surgery
DX: Z20.822 Contact with and (suspected) exposure to COVID-19 (principal)
CPT/HCPCS: 87635

== ENCOUNTER 2021-08-31 07:43 | Day surgery (SDC) | payer MEDICAID, SELFPAY ==
--- NOTE | 2021-08-31 06:33 | COLE_ITS ---
Colonoscopy Report Date of procedure: 08/31/21 Pre-op diagnosis general: Rectal bleeding Post-op diagnosis procedure note: same (colorectal polyp, internal hemorrhoids) Procedure: Colonoscopy with polypectomy Surgeon: Sheridan Saenz Anesthesia Type: General:No Airway Estimated blood loss (mL): 3 Pathology: other (cecal polyp and rectal polyp) Complications: None Disposition: same day Indications: Parag is a pleasant 31-year-old gentleman with ongoing rectal bleeding intermittently for a year.? He has at least 2-3 episodes a week.? His hemoglobin has been stable.? He has a family history of colon cancer in his paternal grand parents.? His paternal aunt also had colon cancer and he believes his maternal grandmother had colon cancer.? He does not have any first-degree relatives with colon cancer.? He is also having some lower abdominal pain which is mostly urin robert related from her his history.? He is quite worried about colon cancer.? We discussed the differential which at his age is most likely internal hemorrhoids.? I think it is reasonable to do a colonoscopy as he is worried about colon cancer and he does seem to have quite a history although not a first-degree family history.? I describe the procedure in detail as well as the complications.? I also discussed with him possible internal hemorrhoid banding. For his reflux I did ask him to take his omeprazole the morning of the procedure with a sip of water. Risks, benefits and complications have been reviewed. Complications include but are not limited to bleeding, pain, perforation, missed small lesion/polyp, sore throat, aspiration and adverse reaction to the medications. Questions were ent ertained and answered to their satisfaction and they wished to proceed. No guarantees were given or implied. Colonoscopy under sedation and possible internal hemorrhoid banding Prep: Miralax/Dulcolax Procedure Start Time: 10:14 Procedure End Time: 10:40 Retraction Time: 12 minutes Findings: 2 small polyps internal hemorrhoids Procedure Description: After informed consent was obtained the patient was taken to the procedure room and placed in a left decubitous position. Monitors were applied and a time out was done. The patients name, date of , procedure, allergies to medications and metal in their body was reviewed. The patient was then sedated. Once sedated and comfortable a rectal exam was done. External exam was normal. Internal exam revealed a normal sphincter tone and no palpable masses. The prostate felt smooth. The scope was then introduced and retro-flexed. Grade 1 internal hemorrhoids noted. No polyps or masses were identified on retro-flexion. The scope was then advanced to the cecum without difficulty. The ileocecal vlave and appendiceal orifice were identified. The prep was adequate. The scope was then slowly retracted over 12 minutes back into the rectum. Polyps were removed with cold forceps in the cecum and rectum. There was no diverticulosis noted. The scope was removed. An anoscope was introduced. There were a couple of internal hemorrhoids right at the Dentate line. I didn't feel that the patient would tolerate banding in this area. The scope was removed and the patient was woken up and taken back to Same day surgery in stable condition. The patient tolerated the procedure well and there were no immediate complications. Follow up: The patient should follow up in 5 years more then likely, unless they develop changes in bowel habits or other new gastrointestinal complaints.
--- NOTE | 2021-08-31 06:34 | W.PM.DSUDISC ---
Discharge Plan Disposition Patient Disposition: HOME Condition: Good Discharge Details Reason For Visit: Colonoscopy Attending Provider: Sheridan Saenz Primary Care Provider: Karlie Tobar Home Meds and New Rx's Prescriptions: New Proctofoam HC 1-1 % foam 1 applic NC QID Qty: 10 0RF Continued omeprazole 10 mg capsule,delayed release(DR/EC) 10 mg PO DAILY 0RF bupropion HCl [Wellbutrin XL] 150 mg tablet extended release 24 hr 150 mg PO QAM Qty: 90 0RF ibuprofen 600 mg tablet 600 mg PO TID PRN (Reason: pain) Qty: 360 1RF mupirocin 2 % ointment 1 applic topical TID Qty: 15 0RF Rx Instructions: Apply to affected area 3 times daily until resolution, typically for 7 days depending on severity and clinical response Discontinued bisacodyl [Dulcolax (bisacodyl)] 5 mg tablet,delayed release (DR/EC) 5 mg PO ONCE Qty: 4 0RF Rx Instructions: Take according to provider's instructions for colonoscopy prep. polyethylene glycol 3350 17 gram/dose powder 17 g PO ONCE Qty: 238 0RF Rx Instructions: To be taken as directed by prescriber's office for colonoscopy prep. Discharge Instructions Instructions: Hemorrhoids (DC), Colorectal Polyps (DC) Additional Instructions: Findings: 2 polyps internal hemorrhoids (to close to the external area to band) Follow up: 2 weeks if the cream I prescribed doesn't help with the bleeding Please call if you develop: fevers >101.5 Nausea or Vomiting Abdominal pain that is not transient Rectal bleeding that is more then a tbsp A hard abdomen and inability to pass gas DAY SURGERY UNIT POST ENDOSCOPY INSTRUCTIONS Instructions for everyone who is given Anesthesia: For your safety, please do the following for the next 24 Hours: a. Do not drive or operate dangerous equipment b. Do not drink alcohol beverages or use any recreational drugs for the first 24 hours or while taking pain medications. The medications in your body may have a reaction that can be dangerous. c. Do not make any important decisions or sign any important papers 1. Generally there are no restrictions on your activity after a day or so has gone by, but you may feel a bit fatigued for a few days. 2. After you arrive home you may have a light meal and return to a normal diet as you can tolerate it without feeling sick to your stomach. 3. After surgery, you may feel pain or discomfort. This should be only transient, but if it persists please contact your doctor. 4. If there are any questions regarding the findings of your procedure, please feel free to contact your doctor. 6. If you are unable to contact your doctor with a problem, contact the hospital at [phone]. 7. Continue all your regular medications unless directed otherwise. I understand the above instructions and have no questions. Signature of Patient or Responsible Adult Escort Date/Time Name of Responsible Adult Escort Signature of Nurse Date/Time Activity:: Activity as Tolerated Diet:: high fiber diet Discharge Orders Discharge Orders: Discharge Order (Routine); Ordered 08/31/21 Ordered By: Sheridan Saenz
[2021-08-31 07:47] VITALS: BP 127/83; PULSE 79; RESP 16; TEMP 36.4; O2SAT 96
[2021-08-31] MEDS: Lactated Ringers 1,000 ML 80 ML IV (08:22)
--- NOTE | 2021-08-31 09:30 | ANES.PREOP_ITS ---
General Info Date of Service Date Performed: 08/31/21 Height: 6 ft Weight: 133.7 kg Body Mass Index (BMI): 39.9 Surgical Procedure: Operation Date: 08/31/21 09:35 Proposed Procedure Side Surgeon p Colonoscopy w/Hemorrhoid Banding Sheridan Saenz MD Meds Allergies and Home Medications Allergies Allergy/AdvReac Type Severity Reaction Status Date / Time No Known Allergies Allergy Verified 08/31/21 07:55 Home Medication Medication Instructions Recorded ibuprofen 600 mg tablet 600 mg PO TID PRN #360 tab 05/14/21 bupropion HCl 150 mg 24 hr tablet, 150 mg PO QAM #90 tab 08/10/21 extended release (Wellbutrin XL) omeprazole 10 mg capsule,delayed 10 mg PO DAILY 08/10/21 release bisacodyl 5 mg tablet,delayed 5 mg PO ONCE #4 tab 08/21/21 release (Dulcolax (bisacodyl)) polyethylene glycol 3350 17 17 g PO ONCE #238 g 08/21/21 gram/dose oral powder mupirocin 2 % topical ointment 1 applic TOPICAL TID #15 g 08/28/21 Current Visit Medications: Current Medications Generic Name Dose Route Start Last Admin Trade Name Freq PRN Reason Stop Dose Admin Hyoscyamine Sulfate 0.125 mg 08/31/21 06:35 Hyoscyamine 0.125 Mg Sl/Oral/Chew SL DIRECTED PRN Ringer's Solution 1,000 mls @ 80 mls/hr 08/31/21 06:00 08/31/21 08:22 IV 09/27/21 23:59 80 mls/hr INFUSION VALERIE Administration IV Miscellaneous Supplies 1 each 08/31/21 06:00 Iv Access IV 09/27/21 23:59 DIRECTED VALERIE Ondansetron HCl 4 mg 08/31/21 06:35 Ondansetron 4 Mg/2 Ml Vial IVP Q4H PRN PRN Nausea / Vomiting Sodium Chloride 0 ml 08/31/21 06:00 Normal Saline Flush 10 Ml Syr IV 09/27/21 23:59 PRN PRN Sodium Chloride 0 ml 08/31/21 06:00 Normal Saline 10 Ml Vial IJ 09/27/21 23:59 DIRECTED PRN Sterile Water 0 ml 08/31/21 06:00 Water,Injection,Sterile 10 Ml Vial IJ 09/27/21 23:59 DIRECTED PRN PFSH Active Problems Active Problems: Problem Status Onset Code Rectal hemorrhage K62.5 Tobacco abuse 03/15/17 Z72.0 BMI 40.0-44.9, adult 03/15/17 Z68.41 Medical History Medical History Back pain Chronic rhinosinusitis GERD (gastroesophageal reflux disease) Kidney stone Throat disorder Wheezing Surgical History Surgical History Abscess of right thigh Status post I&D with cyst wall removal -abscess from [facility] lesion DOS: 09/03/2020 Fx distal radium metaphysis (11/02/05) RIGHT [facility] lesion Status post I&D with cyst wall removal -abscess from [facility] lesion DOS: 09/03/2020 Tonsillectomy (08/02/05) Dr. Perez Tobacco Smoking/Tobacco Use Status: Former Tobacco Use Alcohol Alcohol Intake: current Alcohol intake frequency: a few times a week Alcohol type: beer, wine and hard liquor Substance Use Substance use: Daily Substance use type: marijuana Details: marijuana yesterday, tuesday night alcohol Vital Signs and Lab Results Vital Signs Most Recent Vital Signs in EMR: Most Recent Vital Signs Temp Pulse Resp BP Pulse Ox 36.4 C L 79 16 127/83 96 08/31/21 07:47 08/31/21 07:47 08/31/21 07:47 08/31/21 07:47 08/31/21 07:47 Lab Results Blood Type / Crossmatch: No Data to Display Complete Blood Count: No Data to Display Complete Metabolic Panel: No Data to Display Liver Function Panel: No Data to Display Coagulation Panel: No Data to Display Cardiac Panel: No Data to Display Arterial Blood Gas: No Data to Display Venous Blood Gas: No Data to Display Pancreas Panel: No Data to Display Thyroid Panel: No Data to Display Infectious Disease: Coronavirus (COVID-19)(PCR) Negative (Negative) 08/28/21 09:34 08/28/21 Coronavirus 2019 Source Nasal/Nares 08/28/21 09:34 08/28/21 Neisseria gonorrhoeae DNA Probe Negative (Negative) 08/11/21 08:20 0 08/11/21 Blood Cultures: No Data to Display Toxicology Panel: No Data to Display Anesthesia Assessment and Plan Anesthesia History Personal History: No History of Anesthesia Complications Family History: No Family History of Anesthesia Complications Exercise Tolerance Exercise Tolerance: Metabolic Equivalents>4 Pertinent Negatives Pertinent Negatives: No Major Cardiovascular Symptoms or Complaints, No Major Pulmonary Symptoms or Complaints and No History of CVA/TIA Cardiac & Pulmonary Exam Cardiac Exam: Normal S1/S2 Heart Sounds Pulmonary Exam: Clear Bilateral Breath Sounds Implantable Cardiac Device Does patient have a Pacemaker or an ICD?: No Airway Exam Known Difficult Airway: No Mallampati Class: 2 Mouth Opening: Normal (> 3cm) Thyromental Distance: Greater than 3 cm Neck Range of Motion: Full ROM Neck Circumference: Normal Teeth Condition: Normal Dentition ASA Classification ASA Score: ASA 3 Emergency Case?: No NPO Status NPO Status: NPO Clears >2 hours, Solids >8 hours Anesthesia Plan Resuscitation Status: Full Code Anesthesia Technique: General Anesthesia Airway Planned: Natural Airway Monitors Used: Standard Monitors
[2021-08-31 09:31] VITALS: BMI 39.9
--- NOTE | 2021-08-31 10:18 | BOWEL_PTH ---
PATIENT: Parag Manzanares LOC: [facility] U#:[id number] AGE/SX: 31/M ROOM: RE08/31/[address]: Sheridan Saenz MD : 1990 BED: DIS: 08/31/2021 SPEC #: [id number] RECD: 08/31/21 12:44 STATUS: IZA REQ #: [id number] TADEO: 08/31/21 10:[address]: Sheridan Saenz DEPT: Surgical Specimen RECD BY: Roselia Mansfield ENTERED: 08/31/21 12:46 SP TYPE: Bowel OTHR DR: Karlie Tobar APRN Tissues: 1 - BIOPSY BOWEL 2 - BIOPSY BOWEL Procedures: GROSS AND MICRO LEVEL 4 Comments: [id number]
[2021-08-31 10:50] VITALS: BP 112/73; PULSE 86; RESP 16; TEMP 36.5; O2SAT 97
[2021-08-31 11:20] VITALS: BP 137/89; PULSE 70; RESP 16; TEMP 36.6; O2SAT 98
--- NOTE | 2021-08-31 11:29 | W.ANESPOSTOP ---
Postoperative Evaluation Date, Time and Location Date Performed: 08/31/21 Time Performed: 10:50 Patient Location: Day Surgery Unit Vital Signs Most Recent Imported Vital Signs: Most Recent Vital Signs Temp Pulse Resp BP Pulse Ox 36.5 C 86 16 112/73 97 08/31/21 10:50 08/31/21 10:50 08/31/21 10:50 08/31/21 10:50 08/31/21 10:50 Pain Score Most Recent Pain Score: Most Recent Pain Score Pain Level 0 08/31/21 10:50 Assessment Mental Status: Awake (Alert & Oriented to Patient Baseline) Airway and Respiratory Function: Patent airway with normal (patient baseline) respiratory exam Cardiovascular Function: Hemodynamically Stable Hydration Status: Adequately Hydrated Nausea & Vomiting: No Nausea or Vomiting Pain: Pt. Denies Any Pain Peripheral Nerve Block: Patient did not receive a nerve block
== END 2021-08-31 12:20 | disposition home or self-care (01) ==
LOC: SUR 07:43
PROVIDERS: PCP Nurse Practitioner; Visit Provider Surgery
PROC: 0DJD8ZZ Inspection of Lower Intestinal Tract, Via Natural or Artificial Opening Endoscopic (ICD-10-PCS; CPT 45378; principal; 2021-08-31 09:30)
DX: K62.5 Hemorrhage of anus and rectum (principal); D12.0 Benign neoplasm of cecum; K62.1 Rectal polyp; K64.8 Other hemorrhoids; Z80.0 Family history of malignant neoplasm of digestive organs; K21.9 Gastro-esophageal reflux disease without esophagitis
CPT/HCPCS: 45380; 88305; J2250

== ENCOUNTER 2021-12-14 15:24 | Outpatient (REF) | payer MEDICAID, SELFPAY | END 2021-12-14 15:25 | disposition home or self-care (01) | LOC: LBN 15:24 | PROVIDERS: PCP Nurse Practitioner; Visit Provider Family Medicine | DX: L25.8 Unspecified contact dermatitis due to other agents (principal); S80.822A Blister (nonthermal), left lower leg, initial encounter | CPT/HCPCS: 87077; 87070; 87186 ==

== ENCOUNTER 2022-11-18 11:25 | Outpatient (CLI) | payer MEDICAID, SELFPAY ==
--- NOTE | 2022-11-18 11:25 | RT.EKG_ITS ---
APPROVED REPORT Exam: Resting ECG Reason for Exam: [place]yan Patient Location: O HR:87 bpm ECG Measurements Heart Rate 87 AXIS TN 146 P 45 QRSd 92 QRS 17 QT 356 T 32 QTc 429 Conclusion Sinus rhythm...normal P axis, V-rate 50- 99 Early transition Otherwise normal ECG
== END 2022-11-18 11:26 | disposition home or self-care (01) ==
LOC: DI.KIM 11:26
PROVIDERS: PCP Nurse Practitioner; Visit Provider Nurse Practitioner Family
DX: G62.9 Polyneuropathy, unspecified (principal); R53.83 Other fatigue
CPT/HCPCS: 93010

== ENCOUNTER 2022-11-18 14:32 | Outpatient (CLI) | payer MEDICAID, SELFPAY ==
[2022-11-18 12:40] LABS: Abs Immature Grans 0.02 10^3/uL (0.0-0.06); Absolute Basophil Count 0.04 10^3/uL (0.0-0.2); Absolute Eosinophil Count 0.14 10^3/uL (0.0-0.7); Absolute Lymphocyte Count 2.41 10^3/uL (1.2-3.4); Absolute Monocyte Count 0.54 10^3/uL (0.1-0.8); Absolute Neutrophil Count 4.17 10^3/uL (1.2-6.7); Basophils % 0.5; Eosinophils % 1.9; HCT 48.9 % (40.0-50.0); HGB 16.8 g/dL (13.5-17.5); Immature Grans % 0.3; Lymphocytes % 32.9; MCH 31.4 pg (27.0-33.0); MCHC 34.4 % (32.0-36.0); MCV 91 fL (80-95); MPV 10.1 fL (8.0-11.0); Monocytes % 7.4; Platelet Count 279 10^3/uL (130-400); RBC 5.35 10^6/uL (4.36-5.78); RDW 11.9 % (11.8-14.1); RDW-SD 40.1 fL; WBC 7.32 10^3/uL (4.4-10.8)
[2022-11-18 12:49] LABS: Bilirubin Negative (Negative); Blood Negative (Negative); Clarity Clear (Clear); Glucose Negative (Negative); Ketones Negative (Negative); Leukocyte Esterase Negative (Negative); Nitrite Negative (Negative); Specific Gravity 1.025 (1.005-1.025); Urobilinogen 0.2 mg/dL (Up to 0.2); pH 5.5 (5-8)
[2022-11-18 14:08] LABS: ALT 52 U/L (16-63); AST 22 U/L (15-37); Albumin 4.5 g/dL (3.4-5.0); Alkaline Phosphatase 73 U/L (46-116); Anion Gap 11.2 mmol/L (3-11); BUN 15 mg/dL (7-18); Bilirubin, Total 0.5 mg/dL (0.2-1.0); CO2 24.8 mmol/L (21.0-32.0); CREATININE 0.9 mg/dL (0.70-1.30); Calcium 9.3 mg/dL (8.5-10.1); Chloride 103 mmol/L (98-107); Glucose 94 mg/dL (74-106); Potassium 4.3 mmol/L (3.5-5.1); Sodium 139 mmol/L (136-145); TSH (W/Ref FT4) 1.73 uIU/mL (0.36-3.74); Total Protein 8.4 g/dL (6.4-8.2); Vitamin B12 339 pg/mL (193-986)
[2022-11-19 11:13] LABS: Lyme Ab w Rflx to Lyme Confirm Negative (Negative)
[2022-11-19 12:51] LABS: Albumin 58.3 % (55.8-66.1); Total Protein 8.6 g/dL (6.3-8.2)
[2022-11-19 14:54] LABS: SS-B (La) Ab, IgG 5.8 Units (<20.0)
[2022-11-19 15:14] LABS: ANA Interpretation Negative (Negative)
[2022-11-19 16:15] LABS: SS-A Antibody 1.9 Units (<20.0)
[2022-11-21 18:42] LABS: Anaplasma phagocytophilum Negative (Negative); B. miyamotoi PCR Negative (Negative); Babesia divergens/MO-1 Negative (Negative); Babesia duncani Negative (Negative); Babesia microti Negative (Negative); Ehrlichia chaffeensis Negative (Negative); Ehrlichia ewingii/canis Negative (Negative); Ehrlichia muris eauclairensis Negative (Negative)
== END 2022-11-18 14:33 | disposition home or self-care (01) ==
LOC: LBO 14:37
PROVIDERS: PCP Nurse Practitioner; Visit Provider Nurse Practitioner Family
DX: G62.9 Polyneuropathy, unspecified (principal); R53.83 Other fatigue
CPT/HCPCS: 36415; 80053; 87798; 81003; 82607; 84165; 84443; 85025; 86038; 86235; 86618

== ENCOUNTER 2022-12-15 12:25 | Outpatient (CLI) | payer MEDICAID, SELFPAY ==
[2022-12-16 12:42] LABS: IgA 349 mg/dL (85-499); Interpretation (See Note); Tissue Transglutaminase IgA <1.2 U/mL (<4.0)
== END 2022-12-15 12:26 | disposition home or self-care (01) ==
LOC: LBO 12:26
PROVIDERS: PCP Nurse Practitioner; Visit Provider Nurse Practitioner
DX: R53.83 Other fatigue (principal); R19.7 Diarrhea, unspecified
CPT/HCPCS: 36415; 82784; 83516

== ENCOUNTER 2023-03-28 16:42 | Outpatient (CLI) | payer MEDICAID, SELFPAY ==
[2023-03-28 17:10] LABS: ESR 8 mm/hr (0-15)
[2023-03-28 17:43] LABS: C-Reactive Protein 0.28 mg/dL (0.0-0.3); Creatine Kinase 169 U/L (39-308); Uric Acid 6.4 mg/dL (3.5-7.2)
[2023-03-28 18:18] LABS: Vitamin D 25 Total 27.8 ng/mL (30-100)
[2023-03-29 17:57] LABS: Rheumatoid Factor <8.6 IU/mL (<12.0)
[2023-03-30 09:19] LABS: Cyclic Citrullinated Peptide <2.5 U/mL (<5.0)
[2023-03-30 09:34] LABS: Lyme Ab w Rflx to Lyme Confirm Negative (Negative)
[2023-03-30 15:03] LABS: ANA Interpretation Negative (Negative)
[2023-03-31 20:07] LABS: Anaplasma phagocytophilum Negative (Negative); B. miyamotoi PCR Negative (Negative); Babesia divergens/MO-1 Negative (Negative); Babesia duncani Negative (Negative); Babesia microti Negative (Negative); Ehrlichia chaffeensis Negative (Negative); Ehrlichia ewingii/canis Negative (Negative); Ehrlichia muris eauclairensis Negative (Negative)
== END 2023-03-28 16:43 | disposition home or self-care (01) ==
LOC: LBO 16:43
PROVIDERS: PCP Nurse Practitioner; Visit Provider Nurse Practitioner
DX: M79.10 Myalgia, unspecified site; R53.83 Other fatigue
CPT/HCPCS: 36415; 82306; 82550; 85652; 86200; 87798; 84550; 86038; 86140; 86431; 86618

== ENCOUNTER → 2023-08-29 02:21 | Outpatient (CLI) | payer MEDICAID, SELFPAY ==
--- OUTSIDE RECORDS SUMMARY | 2023-08-29 02:22 | XMS_ITS | Continuity of Care Document ---
Author Name Unknown Organization [facility] Amb[facility] Address [address] [place] [address] Encounter [facility] NBR [id number] Date(s): 08/08/23 - 08/08/23 [facility] [address] [place], [place] [address] Encounter Diagnosis Wheezing(Discharge Diagnosis) - 08/08/23 Left arm numbness(Discharge Diagnosis) - 08/08/23 Trapezius muscle spasm(Discharge Diagnosis) - 08/08/23 Other muscle spasm(Final) - Wheezing(Final) - Anesthesia of skin(Final) - Discharge Disposition: Home or Self Care Attending Physician: Mary Chaudhry PA-C Admitting Physician: Mary Chaudhry PA-C Allergies, Adverse Reactions, Alerts No Known Medication Allergies Assessment and Plan Extracted from: Title:Office Visit Note Author:GILL Romero Date:08/08/23 1.??Trapezius muscle spasm?? M62.838 Patient presenting for evaluation of 3 days of left arm numbness and tingling. ??He has not had any chest pain, dizziness, significant shortness of breath.?? He does have??faint diffuse expiratory wheezing on exam today however over his chest x- ray is negative. ??He is a tobacco smoker??and notes that this is chronic for him and he is working on cutting back.?? Offered encouragement for this.?? His chest x- ray??shows no acute cardiopulmonary process. ??His EKG shows a normal sinus rhythm without any ST abnormalities.?? He does have hypertonicity of the trapezius muscle and we discussed the possibility??of a muscle spasm and pinched nerve.?? I did explain to patient that??further cardiac workup could be considered??in the emergency department however patient??would like to monitor his symptoms over the next day or so. ??I feel this is reasonable given his exam and study??findings.?? He will be started on a muscle relaxant at bedtime. ??Advised this medication can make him sleepy and he should not work or drive on it.?? Encouraged use of a heating pad.?? We discussed that if the numbness and tingling in the left arm is not improving over the next couple of days that he should be seen??for recheck immediately.?? He understands that for any chest pain, dizziness, shortness of breath that he is to be??evaluated emergently. Ordered: methocarbamol 500 mg oral tablet, See Instructions, 2 tab orally prn at bedtime for muscle spasm, # 10 tab, 0 Refill(s), Pharmacy: [facility] #[id number] ?? 2.??Wheezing??R06.2 Chest x-ray negative for acute cardiopulmonary process. ??Encouraged that he??cut down on tobacco use as he has been working hard on.?? Follow-up for any worsening cough or shortness of breath Ordered: methocarbamol 500 mg oral tablet, See Instructions, 2 tab orally prn at bedtime for muscle spasm, # 10 tab, 0 Refill(s), Pharmacy: [facility] #[id number] CV Electrocardiogram 12 Lead, 08/08/23 17:30:00 EST, Routine, Reason: Dizziness, Stop date and time 08/08/23 17:30:00 EST, Wheezing Left arm numbness, ORD_SET_REQ_DT_RANGE, [employer] Id ?? 3.??Left arm numbness??R20.0 Ordered: methocarbamol 500 mg oral tablet, See Instructions, 2 tab orally prn at bedtime for muscle spasm, # 10 tab, 0 Refill(s), Pharmacy: [facility] #[id number] CV Electrocardiogram 12 Lead, 08/08/23 17:30:00 EST, Routine, Reason: Dizziness, Stop date and time 08/08/23 17:30:00 EST, Wheezing Left arm numbness, ORD_SET_REQ_DT_RANGE, [employer] Id ?? Orders: Review Orders for Potential Auths., 08/08/23 17:09:17 EST Functional Status 08/08/23 Other exposure to Infectious Disease Non e Medications methocarbamol 500 mg oral tablet See Instructions, 2 tab orally prn at bedtime for muscle spasm, # 10 tab, 0 Refill(s), Pharmacy: [facility] #[id number] Start Date: 08/08/23 Status: Ordered omeprazole 20 mg oral delayed release capsule 20 mg = 1 cap, Oral, Daily, # 90 cap, 2 Refill(s), Pharmacy: [facility] #[id number] Start Date: 04/16/22 Stop Date: 01/11/23 Status: Ordered Vital Signs Most recent to oldest [Reference Range]: 1 Temperature Tympanic [36.6-38.1 Deg C] 3 6.8 Deg C (08/08/23 4:52 PM) Peripheral Pulse Rate [60-100 bpm] 86 bp m (08/08/23 4:52 PM) Respiratory Rate [12-24 br/min] 18 br/mi n (08/08/23 4:52 PM) Blood Pressure [90-140/60-90 mmHg] 150/9 5mmHg *HI* (08/08/23 4:52 PM) Mean Arterial Pressure, Cuff [70-110 mmH g] 113 mmHg *HI* (08/08/23 4:52 PM) Physician Outpatient Note * Mary Chaudhry PA-C: PERFORM Event Display: Office Clinic Note Physician Authored Date: [id number] ELIDA CAMPBELL :1990 Age:33 years Sex:Male Visit Date:08/08/2023 Chief Complaint left arm numbess x2 days. pt state he also has felt full body jolts and has felt heart palpitationsand fatigue History of Present Illness This is a 33-year-old male who presents for evaluation. ??Patient reports that for the past 3 days he has been experiencing numbness and tingling in his left upper extremity. ??It has been persistent. ??He has also had some tension in his neck and??left posterior shoulder.?? He is concerned that this may be related to his heart. ??He notes that he has been experiencing??a few intermittent palpitat ions in the chest area. ??He has not had any chest pain, dizziness, nausea, vomiting, shortness of breath.?? He denies any provoking injury or trauma.?? He also reports that he is a smoker.?? He doessometimes have a wheezy cough.?? He is trying to cut back on smoking. ??He reports that for the past year he has been??seen by his primary care provider and??by the emergency department??on multiple occasions for fatigue,??joint and muscle aches. ??He notes he has had a large workup including??a lot of blood work??and his neck step is to see the neurologist to rule out something going on with hisbrain.?? He is on the waiting list to see neurology.?? He notes that he is been evaluated for anemia, thyroid problems, autoimmune disease, lupus,??rheumatoid arthritis, Lyme disease, B12 deficiency,diabetes all which have been negative.?? He denies any personal or family history of heart disease. Physical Exam Vitals & Measurements T:??36.8?C ??(Tympanic)?? HR:??86??(Peripheral)?? RR:??18?? BP:??150/95?? SpO2:??100%?? General: A&O x 3, well-built and hydrated, no acute distress Throat: oropharynx and tonsils without erythema or exudate Neck:??5/5 flexion and extension, supple, no lymphadenopathy Chest: symmetric rise Heart: normal S1S2, no murmurs, rubs, gallops Lungs: equal and symmetric respiratory effort, diffuse expiratory wheezing, no rales or rhonchi Abdomen: soft, distended, bowel sounds normoactive, no tenderness, rebound, guarding, rigidity Neck: No vertebral spine tenderness, there is hypertonicity to the left-sided paraspinal and trapezius muscles Extremities: Range of motion in the shoulder intact, 5 out of 5 strength Neuro:??Cranial nerves II through XII intact, normal rapid alternating movements, 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 ??He has not had anychest pain, dizziness, significant shortness of breath.?? He does have??faint diffuse expiratory wheezing on exam today however over his chest x-ray is negative. ??He is a tobacco smoker??and notes that this is chronic for him and he is working on cutting back.?? Offered encouragement for this.?? His chest x-ray??shows no acute cardiopulmonary process. ??His EKG shows a normal sinus rhythm without any ST abnormalities.?? He does have hypertonicity of the trapezius muscle and we discussed the possibility??of a muscle spasm and pinched nerve.?? I did explain to patient that??further cardiac workup could be considered??in the emergency department however patient??would like to monitor his symptoms over the next day or so. ??I feel this is reasonable given his exam and study??findings.?? He will be started on a muscle relaxant at bedtime. ??Advised this medication can make him sleepy and heshould not work or drive on it.?? Encouraged use of a heating pad.?? We discussed that if the numbness and tingling in the left arm is not improving over the next couple of days that he should be seen??for recheck immediately.?? He understands that for any chest pain, dizziness, shortness of breaththat he is to be??evaluated emergently. Ordered: methocarbamol 500 mg oral tablet, See Instructions, 2 tab orally prn at bedtime for muscle spasm, #10 tab, 0 Refill(s), Pharmacy: [facility] #[id number] ?? 2.??Wheezing??R06.2 Chest x-ray negative for acute cardiopulmonary process. ??Encouraged that he??cut down on tobacco use as he has been working hard on.?? Follow-up for any worsening cough or shortness of breath Ordered: methocarbamol 500 mg oral tablet, See Instructions, 2 tab orally prn at bedtime for muscle spasm, #10 tab, 0 Refill(s), Pharmacy: [facility] #[id number] CV Electrocardiogram 12 Lead, 08/08/23 17:30:00 EST, Routine, Reason: Dizziness, Stop date and time08/08/23 17:30:00 EST, Wheezing Left arm numbness, ORD_SET_REQ_DT_RANGE, [employer] ?? 3.??Left arm numbness??R20.0 Ordered: methocarbamol 500 mg oral tablet, See Instructions, 2 tab orally prn at bedtime for muscle spasm, #10 tab, 0 Refill(s), Pharmacy: [facility] #[id number] CV Electrocardiogram 12 Lead, 08/08/23 17:30:00 EST, Routine, Reason: Dizziness, Stop date and time08/08/23 17:30:00 EST, Wheezing Left arm numbness, ORD_SET_REQ_DT_RANGE, [employer] ?? Orders: Review Orders for Potential Auths., 08/08/23 17:09:17 EST Problem List/Past Medical History Ongoing No qualifying data Historical No qualifying data Medications methocarbamol 500 mg oral tablet, See Instructions omeprazole 20 mg oral delayed release capsule, 20 mg= 1 cap, Oral, Daily, 2 refills Allergies No Known Medication Allergies Electronically Signed on 08/08/23 07:00 PM Mary Chaudhry PA-C Patient Care team information Care Team Related Persons Name: SARA CAMPBELL Name: SARA CAMPBELL Name: GREGORIO GARZA Address: Home [address] Name: GREGORIO GARZA Address: Home [address] Name: JREEMIAH MONTEJO Name: JEREMIAH MONTEJO
--- OUTSIDE RECORDS SUMMARY | 2023-08-29 02:22 | XMS_ITS | Continuity of Care Document ---
Author Name Unknown Organization [facility] Address [address] [place] [id number] Encounter [facility] NBR [id number] Date(s): 08/08/23 - 08/08/[address] [phone] Encounter Diagnosis Wheezing(Final) - Anesthesia of skin(Final) - Discharge Disposition: Home or Self Care Attending Physician: Mary Chaudhry PA-C Admitting Physician: Mary Chaudhry PA-C Allergies, Adverse Reactions, Alerts No Known Medication Allergies Medications methocarbamol 500 mg oral tablet See Instructions, 2 tab orally prn at bedtime for muscle spasm, # 10 tab, 0 Refill(s), Pharmacy: [facility] #[id number] Start Date: 08/08/23 Status: Ordered omeprazole 20 mg oral delayed release capsule 20 mg = 1 cap, Oral, Daily, # 90 cap, 2 Refill(s), Pharmacy: [facility] #[id number] Start Date: 04/16/22 Stop Date: 01/11/23 Status: Ordered Results Radiology Reports * Exam Date Time Procedure Performing Provider Status 08/08/23 5:55 PM XR Chest 2 Views Spencer Candelaria (Verified) Notes: (XR Chest 2 Views) Reason For Exam: wheezing, dyspnea XR Chest 2 Views PROCEDURE INFORMATION: Exam: XR Chest Exam date and time: 08/08/2023 5:46 PM Age: 33 years old Clinical indication: Wheezing; Wheezing; Anesthesia of skin; Anesthesia of skin; Additional info: Wheezing, dyspnea TECHNIQUE: Imaging protocol: Radiologic exam of the chest. Views: 2 views. COMPARISON: No relevant prior studies available. FINDINGS: Lungs: No focal consolidation. Pleural spaces: No substantial pleural effusion. No pneumothorax. Heart/Mediastinum: Heart size is within normal limits. Bones/joints: No acute osseous abnormality. IMPRESSION: No acute abnormality. THIS DOCUMENT HAS BEEN ELECTRONICALLY SIGNED BY JESSICA BRUCE MD on 08/08/2023 06:03 PM Final Signed by: Jessica Bruce MD Signed (Electronic Signature): 08/08/2023 6:03 pm Patient Care team information Care Team Related Persons Name: SARA CAMPBELL Name: SARA CAMPBELL Name: GREGORIO GARZA Address: Home [address] [place] [address] Name: GREGORIO GARZA Address: Home [address] Name: JEREMIAH MONTEJO Name: JEREMIAH MONTEJO
--- NOTE | 2023-08-29 08:30 | DI.MRI_ITS ---
Exam(s) MR LUMBAR SPINE WO EXAM: MR LUMBAR SPINE WO CLINICAL HISTORY: Low back pain with BLE weakness, numbness,pain,m54.50,m54.10,radiculopathy. TECHNIQUE: Multiplanar multisequence MRI of the Lumbar spine was performed. COMPARISON: No exams were available for comparison FINDINGS: Bones: The last intervertebral disc space is designated the L5/S1 level for the numbering purpose of this examination. The vertebral body heights are well maintained. Alignment is satisfactory. There are degenerative endplate signal changes at L4-5 and L5-S1. Cord: The conus tip ends at the T12 level. It is of normal size and signal intensity. T12-L1: No disc herniations or bulges are present. No central spinal canal or neural foraminal stenos is. L1-2: No disc herniations or bulges are present. No central spinal canal or neural foraminal stenosis . L2-3: No disc herniations or bulges are present. No central spinal canal or neural foraminal stenosis . L3-4: There is a diffuse disc bulge. No central spinal canal or neural foraminal stenosis. L4-5: There is a diffuse disc bulge and a small central disc herniation. There is mild narrowing of the central spinal canal. No significant neural foraminal stenosis is seen. L5-S1: There is a diffuse disc bulge. There is also small left paracentral disc herniation. No sign ificant central spinal canal stenosis is seen. There is mild narrowing of the left neural foramen. No significant right neural foraminal stenosis. Soft tissues: The visualized SI joints and sacrum are well maintained. The paraspinal soft tissues ar e unremarkable. IMPRESSION: 1. At L5-S1, there is a small left paracentral disc herniation in addition to a diffuse disc bulge. There is mild narrowing of the left neural foramen. 2. At L4-5, there is a small central disc herniation. There is mild narrowing of the central spinal canal. 3. At L3-L4, there is a mild diffuse disc bulge. DATA REPOSITORY:
== END ==
PROVIDERS: PCP Nurse Practitioner; Visit Provider Nurse Practitioner
DX: M51.37 Other intervertebral disc degeneration, lumbosacral region (principal)
CPT/HCPCS: 72148

== ENCOUNTER 2023-11-16 12:48 | Outpatient (CLI) | payer MEDICAID, SELFPAY ==
[2023-11-16 10:48] LABS: ESR 15 mm/hr (0-15)
[2023-11-16 11:21] LABS: C-Reactive Protein < 0.50 mg/dL (<or=0.5)
[2023-11-16 11:44] LABS: Vitamin D 25 Total 24.6 ng/mL (30-100)
[2023-11-16 17:52] LABS: Rheumatoid Factor <8.6 IU/mL (<12.0)
[2023-11-17 09:41] LABS: Cyclic Citrullinated Peptide <2.5 U/mL (<5.0)
[2023-11-17 10:17] LABS: Lyme Ab w Rflx to Lyme Confirm Negative (Negative)
[2023-11-17 10:22] LABS: Sm (Smith) Ab, IgG <8.0 CU (<20.0)
[2023-11-17 13:25] LABS: ANA Interpretation Negative (Negative)
[2023-11-18 11:17] LABS: Anti-DNase B Titer 109 U/mL (0 - 300)
[2023-11-19 00:08] LABS: Anaplasma phagocytophilum Negative (Negative); B. miyamotoi PCR Negative (Negative); Babesia divergens/MO-1 Negative (Negative); Babesia duncani Negative (Negative); Babesia microti Negative (Negative); Ehrlichia chaffeensis Negative (Negative); Ehrlichia ewingii/canis Negative (Negative); Ehrlichia muris eauclairensis Negative (Negative)
[2023-12-01 16:18] LABS: Result Summary NEGATIVE; Specimen WB Whole Blood
== END 2023-11-16 12:49 | disposition home or self-care (01) ==
LOC: LBO 12:48
PROVIDERS: Advanced Practice Midwife; PCP Nurse Practitioner; Visit Provider Nurse Practitioner
DX: Z31.440 Encounter of male for testing for genetic disease carrier status for procreative management (principal); R53.83 Other fatigue; M25.59 Pain in other specified joint
CPT/HCPCS: 81220; 81222; 82306; 85652; 86200; 86215; 87798; 86038; 86140; 86235; 86431; 86618

== ENCOUNTER 2024-02-08 15:51 | Outpatient (CLI) | payer MEDICAID, SELFPAY ==
[2024-02-08 14:50] LABS: HCT 45.6 % (40.0-50.0); HGB 15.5 g/dL (13.5-17.5); MCH 31.9 pg (27.0-33.0); MCV 94 fL (80-95); MPV 10.2 fL (8.0-11.0); Platelet Count 244 10^3/uL (130-400); RBC 4.86 10^6/uL (4.36-5.78); RDW 11.6 % (11.8-14.1); RDW-SD 40.3 fL; WBC 7.02 10^3/uL (4.4-10.8)
--- OUTSIDE RECORDS SUMMARY | 2024-02-08 15:52 | XMS_ITS | Referral Summary ---
Author Organization [facility] Address [address] [place] [address] Care Team Providers Care Caddy Master Name Role Phone Unknown, Provider Primary Care Provider Encounters Date Type Department Care Team Description 11/16/2023 Lab Requisition [facility] Pathology & Laboratory Medicine - [facility] [address] [place] [address] Outr Resulting Lab, Provider from Last 3 Months Social History Tobacco Use Types Packs/Day Years Used Date Smoking Tobacco: Never Assessed Interpersonal Safety Answer Date Record ed Physically Hurt Never 08/08/2020 Verbally Threaten Not on file 08/08/2020 Sex and Gender Information Value Date Recorded Sex Assigned at Not on file Gender Identity Not on file Sexual Orientation Not on file Plan of Treatment Not on file Procedures Procedure Name Priority Date/Time Associated Diagnosis Comments HOLD SST Today 11/16/2023 10:30 EDT HOLD SST Today 11/16/2023 10:30 EDT LYME AB Today 11/16/2023 10:30 EDT RHEUMATOID FACTOR Today 11/16/2023 10: 30 EDT SM (MACKENZIE) ANTIBODY, IGG Today 11/16/2023 10:30 EDT ANTI NUCLEAR AB (CONY), IFA Today 11/16/2023 10:30 EDT CCP ANTIBODIES Today 11/16/2023 10:30 EDT from Last 3 Months Results * HOLD SST (11/16/2023 10:30 EDT) Only the most recent of2 resultswithin the time period is included. Hold Hold 11/16/2023 18:46 EDT [facility] Blood VENOUS BLOOD / Unknown 11/16/2023 10:30 EDT 11/16/2023 17:33 EDT Provider Outr Resulting Lab LAB INFO SER VICE AND SUPPORT & PHONE RESULT Performing Organization Address [facility]/ZIP Co de Phone Number [facility] [address] [place] [phone] * SM (MACKENZIE) ANTIBODY, IGG (11/16/2023 10:30 EDT) [facility] SM (Mackenzie) Antibody, IgG <8.0 <20.0 CU 11/17/2023 10:17 EDT [facility] Comment:Results were obtaine d with the [employer] QUANTA Flash Sm chemiluminescent immunoassay. Values obtained with different manufacturers' assay methods must not be used interchangeably. Blood VENOUS BLOOD / Unknown 11/16/2023 10:30 EDT 11/16/2023 17:18 EDT Provider Outr Resulting Lab IMMUNOLOGY A ND SEROLOGY ORDERABLES Performing Organization Address [facility] Co de Phone Number [facility] [address] [place] [phone] * CCP ANTIBODIES (11/16/2023 10:30 EDT) [facility] CCP Antibodies <2.5 <5.0 U/mL 11/17/2023 9:36 EDT [facility] Blood VENOUS BLOOD / Unknown 11/16/2023 10:30 EDT 11/16/2023 17:18 EDT Provider Outr Resulting Lab IMMUNOLOGY A ND SEROLOGY ORDERABLES Performing Organization Address [facility]/ZIP Co de Phone Number [facility] [address] [place] [phone] * LYME AB (11/16/2023 10:30 EDT) Lyme Ab Negative Negative 11/17/2023 10:13 EDT [facility] Blood VENOUS BLOOD / Unknown 11/16/2023 10:30 EDT 11/16/2023 17:18 EDT Provider Outr Resulting Lab IMMUNOLOGY A ND SEROLOGY ORDERABLES Performing Organization Address [facility]/ZIP Co de Phone Number [facility] [address] [place] [address] * RHEUMATOID FACTOR (11/16/2023 10:30 EDT) Pathologist [facility] Rheumatoid Factor <8.6 <12.0 IU/mL 11/16/2023 17:46 EDT [facility] Blood VENOUS BLOOD / Unknown 11/16/2023 10:30 EDT 11/16/2023 17:18 EDT Provider Outr Resulting Lab CHEMISTRY & BLOOD GAS ORDERABLES Performing Organization Address [facility] Co de Phone Number [facility] [address] [place] [address] * ANTI NUCLEAR AB (CONY), IFA (11/16/2023 10:30 EDT) Pathologist [facility] CONY Interpretation Negative Negative 2023 13:20 EDT [facility] Comment:No titer performed, CONY Screen is negative. Blood VENOUS BLOOD / Unknown 11/16/2023 10:30 EDT 11/16/2023 17:18 EDT Narrative [facility] - 11/17/2023 13:20 EDT Results were obtained with the [employer] NOVA Lite HEp-2 CONY Kit by indirect immunofluorescence. Provider Outr Resulting Lab IMMUNOLOGY A ND SEROLOGY ORDERABLES Performing Organization Address [facility]/ZIP Co de Phone Number [facility] [address] [place] [address] from Last 3 Months Care Teams Caddy Master Relationship Specialty Start Date End Date Unknown, Provider, PCP - General 08/11/21
--- OUTSIDE RECORDS SUMMARY | 2024-02-08 15:52 | XMS_ITS | Encounter Summary ---
Author Organization [facility] Address [address] [place] [address] Care Team Providers Care Lehr Attendant Name Role Phone Unknown, Provider Primary Care Provider Encounter Details Date Type Department Care Team (Late st Contact Info) Description 04/08/2021 Lab Requisition [facility] Pathology & Laboratory Medicine - [facility] [address] [place] [address] Outr Resulting Lab, Provider Social History Tobacco Use Types Packs/Day Years Used Date Smoking Tobacco: Never Assessed Interpersonal Safety Answer Date Record ed Physically Hurt Never 08/08/2020 Verbally Threaten Not on file 08/08/2020 Sex and Gender Information Value Date Recorded Sex Assigned at Not on file Gender Identity Not on file Sexual Orientation Not on file documented as of this encounter Plan of Treatment Not on file documented as of this encounter Procedures Procedure Name Priority Date/Time Associated Diagnosis Comments ZZCOVID-19 TEST [facility] PCR Today 04/07/2021 12:50 EDT COVID-19 TESTING Routine 04/07/2021 12:5 0 EDT documented in this encounter Results * COVID-19 TEST [facility] PCR (04/07/2021 12:50 EDT) Swab ENTIRE NASOPHARYNX / Unknown 04/07/2021 12:50 EDT 04/08/2021 17:13 EDT Provider Outr Resulting Lab MICROBIOLOGY - GENERAL ORDERABLES [facility] [address] [place] [address] * COVID-19 TESTING (04/07/2021 12:50 EDT) COVID-19 rt-PCR Result Negative Negative 04/09/2021 10:43 EDT [facility] Comment: This test has not been FDA cleared or approved. This test has been authorized by FDA under an EUA for use by authorized laboratories. This test has been authorized only for detection of nucleic acid from 2019-nCoV, not for any other viruses or pathogens. This test is only authorized for the duration of the declaration that circumstances exist justifying the authorization of emergency use of in vitro diagnostic tests for detection and/or diagnosis of 2019-nCoV under section 564(b)(1) of Act, 21 U.S.C ?? 360bbb-3(b) (1), unless the authorization is terminated or revoked sooner. Negative results do not preclude 2019-nCoV infection and should not be used as the sole basis for treatment or other patient management decisions. Negative results must be combined with clinical observations, patient history, and epidemiological information. Testing was performed using the yeison SARS-CoV-2 assay ([employer] on the Yeison 6800 System Performing Lab Yeison [address]00 [facility] Lab 04/09/2021 10:43 EDT [facility] Swab 04/07/2021 12:5 0 EDT 04/08/2021 17:13 EDT Provider Outr Resulting Lab MICROBIOLOGY - GENERAL ORDERABLES [facility] [address] [place] [address] documented in this encounter Visit Diagnoses Not on filedocumented in this encounter Care Teams Lehr Attendant Relationship Specialty Start Date End Date Unknown, Provider, PCP - General 08/11/21 documented as of this encounter
--- OUTSIDE RECORDS SUMMARY | 2024-02-08 15:52 | XMS_ITS | Encounter Summary ---
Author Organization [facility] Address [address] [place] [address] Care Team Providers Care Letter Sorting Machine Operator Name Role Phone Unknown, Provider Primary Care Provider Encounter Details Date Type Department Care Team (Late st Contact Info) Description 11/18/2022 Lab Requisition [facility] Pathology & Laboratory Medicine - [facility] [address] [place] [address] Outr Resulting Lab, Provider Social History Tobacco [...] Procedure Name Priority Date/Time Associated Diagnosis Comments SPEP, INCLUDES QUANTITATION OF MONOCLONAL SPIKE PERFORMABLE Today 11/18/2022 12:20 EDT SS-B (LA) ANTIBODY, IGG Routine 11/18/2022 12:20 EDT ZZHN SSA ANTIBODIES BY SAMIR Routine 11/18/2022 12:20 EDT LYME AB Routine 11/18/2022 12:20 EDT ANTI NUCLEAR AB (CONY), IFA Routine 11/18/2022 12:20 EDT SPEP, INCLUDES QUANTITATION OF MONOCLONAL SPIKE Routine 11/18/2022 12:20 EDT PROTEIN, TOTAL Today 11/18/2022 12:20 EDT documented in this encounter Results * (ABNORMAL) SPEP, INCLUDES QUANTITATION OF MONOCLONAL SPIKE PERFORMABLE (11/18/2022 12:20 EDT) Albumin % 58.3 55.8 - 66.1 % 11/19/2022 12:46 [facility] Albumin g/dL 5.0 3.6 - 5.2 g/dL 11/19/2022 12:46 [facility] Alpha-1 % 2.7(L) 2.9 - 4.9 % 11/19/2022 12:46 [facility] Alpha-1 g/dL 0.20 0.15 - 0.40 g/dL 11/19/2022 12:46 [facility] Alpha-2 % 9.7 7.1 - 11.8 % 11/19/2022 12:46 [facility] Alpha-2 g/dL 0.80 0.50 - 1.00 g/dL 11/19/2022 12:46 [facility] Beta % 13.6(H) 8.4 - 13.1 % 11/19/2022 12:46 [facility] Beta g/dL 1.20 0.60 - 1.20 g/dL 11/19/2022 12:46 [facility] Gamma % 15.7 11.1 - 18.8 % 11/19/2022 12:46 [facility] Gamma g/dL 1.40 0.60 - 1.60 g/dL 11/19/2022 12:46 [facility] SPEP Comment No apparent monoclonal protein seen on serum electrophoresis 11/19/2022 12:46 [facility] Comment:See scanned/suppleme ntary report. Total Protein 8.6(H) 6.3 - 8.2 g/dL 11/19/2022 12:46 [facility] Blood VENOUS BLOOD / Unknown 11/18/2022 12:20 EDT 11/18/2022 22:33 EDT Provider Outr Resulting Lab CHEMISTRY & BLOOD GAS ORDERABLES Performing Organization Address [facility] Co de Phone Number [facility] [address] [place] [address] * PROTEIN, TOTAL (11/18/2022 12:20 EDT) Blood VENOUS BLOOD / Unknown 11/18/2022 12:20 EDT 11/18/2022 22:33 EDT Provider Outr Resulting Lab CHEMISTRY & BLOOD GAS ORDERABLES Performing Organization Address City/[facility]/ZIP Co de Phone Number [facility] [address] [place] [address] * LYME AB (11/18/2022 12:20 EDT) [facility] Lyme Ab Negative Negative 11/19/2022 11:07 EDT [facility] Blood VENOUS BLOOD / Unknown 11/18/2022 12:20 EDT 11/18/2022 22:33 EDT Provider Outr Resulting Lab IMMUNOLOGY A ND SEROLOGY ORDERABLES Performing Organization Address [facility] de Phone Number [facility] [address] [place] [address] * SSB ANTIBODIES BY SAMIR (11/18/2022 12:20 EDT) [facility] SSB Antibody 5.8 <20.0 Units 11/19/2022 14:49 EDT [facility] Comment: ? Negative: <20.0 Units ? Weak Positive: 20.0 - 39.9 Units ? Moderate Positive: 40.0 - 80.0 Units ? Strong Positive: >80.0 Units Results were obtained with the [employer] QUANTA Lite SS-B SAMIR. ??SS-B values obtained with different manufacturers' assay methods may not be used interchangeably. ??The magnitude of the reported IgG levels cannot be correlated to an endpoint titer. Blood VENOUS BLOOD / Unknown 11/18/2022 12:20 EDT 11/18/2022 22:33 EDT Provider Outr Resulting Lab IMMUNOLOGY A ND SEROLOGY ORDERABLES Performing Organization Address [facility] Co de Phone Number [facility] [address] [place] [address] * SSA ANTIBODIES BY SAMIR (11/18/2022 12:20 EDT) SSA Antibody 1.9 <20.0 Units 11/19/2022 16:09 EDT [facility] Comment: ? Negative: <20.0 Units ? Weak Positive: 20.0 - 39.9 Units ? Moderate Positive: 40.0 - 80.0 Units ? Strong Positive: >80.0 Units Results were obtained with the [employer] QUANTA Lite SS-A SAMIR. ??SS-A values obtained with different manufacturers' assay methods may not be used interchangeably. ??The magnitude of the reported IgG levels cannot be correlated to an endpoint titer. Blood VENOUS BLOOD / Unknown 11/18/2022 12:20 EDT 11/18/2022 22:33 EDT Provider Outr Resulting Lab IMMUNOLOGY A ND SEROLOGY ORDERABLES Performing Organization Address [facility] Co de Phone Number [facility] [address] [place] [address] * ANTI NUCLEAR AB (CONY), IFA (11/18/2022 12:20 EDT) CONY Interpretation Negative Negative 2022 15:06 EDT [facility] Comment:No titer performed, CONY Screen is negative. Blood VENOUS BLOOD / Unknown 11/18/2022 12:20 EDT 11/18/2022 22:33 EDT Narrative [facility] - 11/19/2022 15:06 EDT Results were obtained with the [employer] NOVA Lite HEp-2 CONY Kit by indirect immunofluorescence. Provider Outr Resulting Lab IMMUNOLOGY A ND SEROLOGY ORDERABLES [facility] [address] [place] [address] documented in this encounter Visit Diagnoses Not on filedocumented in this encounter Care Teams Letter Sorting Machine Operator Relationship Specialty Start Date End Date Unknown, Provider, PCP - General 08/11/21 documented as of this encounter
--- OUTSIDE RECORDS SUMMARY | 2024-02-08 15:52 | XMS_ITS | Encounter Summary ---
Author Organization [facility] Address [address] [place] [address] Care Team Providers Care Piano Tuner Name Role Phone Unknown, Provider Primary Care Provider Encounter Details Date Type Department Care Team (Late st Contact Info) Description 08/11/2021 Lab Requisition [facility] Pathology & Laboratory Medicine - [facility] [address] [place] [address] Outr Resulting Lab, Provider Social History Tobacco [...] Procedure Name Priority Date/Time Associated Diagnosis Comments CHLAMYDIA/N. GONORRHOEAE AMPLIFIED NUCLEIC ACID Routine 08/11/2021 8:20 EST documented in this encounter Results * CHLAMYDIA/N. GONORRHOEAE AMPLIFIED RNA (08/11/2021 8:20 EST) Neisseria gonorrhoeae Result Negative Negative 08/12/2021 14:21 EST [facility] Chlamydia trachomatis Result Negative Negative 08/12/2021 14:21 EST [facility] Urine URINE / Unknown 08/11/2021 8 :20 EST 08/11/2021 21:18 EST Provider Outr Resulting Lab MICROBIOLOGY - GENERAL ORDERABLES [facility] [address] [place] [address] documented in this encounter Visit Diagnoses Not on filedocumented in this encounter Care Teams Piano Tuner Relationship Specialty Start Date End Date Unknown, Provider, PCP - General 08/11/21 documented as of this encounter
--- OUTSIDE RECORDS SUMMARY | 2024-02-08 15:52 | XMS_ITS | Encounter Summary ---
Author Organization [facility] Address [address] [place] [address] Care Team Providers Care Field Placement Director Name Role Phone Unknown, Provider Primary Care Provider [phone] Encounter Details Date Type Department Care Team (Late st Contact Info) Description 11/12/2020 Lab Requisition [facility] Pathology & Laboratory Medicine - [facility] [address] [place] [address] Outr Resulting Lab, Provider Social History Tobacco [...] Comments ZZCOVID-19 TEST [facility] PCR Today 11/12/2020 9:20 EDT COVID-19 TESTING Routine 11/12/2020 9:20 EDT documented in this encounter Results * COVID-19 TEST [facility] PCR (11/12/2020 9:20 EDT) Swab ENTIRE NASOPHARYNX / Unknown 11/12/2020 9:20 EDT 11/12/2020 15:39 EDT Provider Outr Resulting Lab MICROBIOLOGY - GENERAL ORDERABLES [facility] [address] [place] [address] * COVID-19 TESTING (11/12/2020 9:20 EDT) COVID-19 rt-PCR Result Negative Negative 11/13/2020 11:44 EDT [facility] Comment: This test has not [...] was performed using the yeison SARS-CoV-2 assay ([employer] on the Yeison 6800 System Performing Lab Yeison 6800 [facility] Lab 11/13/2020 11:44 EDT [facility] Swab 11/12/2020 9:20 EDT 11/12/2020 15:39 EDT Provider Outr Resulting Lab MICROBIOLOGY - GENERAL ORDERABLES [facility] [address] [place] [address] documented in this encounter Visit Diagnoses Not on filedocumented in this encounter Care Teams Field Placement Director Relationship Specialty Start Date End Date Unknown, Provider, PCP - General 08/11/21 documented as of this encounter
--- OUTSIDE RECORDS SUMMARY | 2024-02-08 15:52 | XMS_ITS | Encounter Summary ---
[place] [address] Care Team Providers Care Head Of Art Name Role Phone Karlie Tobar APRN Primary Care Provider Reason for Referral * Consultation (Routine) - Denied Specialty Diagnoses / Procedures Referred By Valentin t Referred To Contact Rheumatology Diagnoses Pain in joint, multiple sites Pain EVAL AND TREAT POLYARTHRALGIA BODY ACHES PAIN IN EVERY JOINT, HAND SWELLING. FOR ABOUT 1,5 YEARS. DIFFICULTY MOVING. LAB TESTING HAS BEEN NEGATIVE. WOULD APPRECIATE CONSULT. Karlie Tobar APRN [address] [place] [address] [facility] Rheumatology [address] [place] [phone] Referral ID Status Reason Start Date Expiration Date V isits Requested Visits Authorized [id number] Denied Consult, Test & Treat PCP Updated and/or Approved 11/16/2023 11/15/2024 6 0 Encounter Details Date Type Department Care Team (Latest Contact Info) Description 12/01/2023 Transcribe Orders eDH Incoming Referrals [phone] Karlie Tobar APRN [address] [place], [place] [id number] Pain in joint, multiple sites; Pain Social History Tobacco Use Types Packs/Day Years Used Date Smoking Tobacco: Never Assessed Sex and Gender Information Value Date Recorded Sex Assigned at Not on file Gender Identity Not on file Sexual Orientation Not on file documented as of this encounter Plan of Treatment Scheduled Referrals Name Type Priority Associated Diagnoses Order Schedule Referral to Rheumatology Outpatient Referral Routine Pain in joint, multiple sites Pain Ordered: 12/01/2023 documented as of this encounter Visit Diagnoses Diagnosis Pain in joint, multiple sites Pain Generalized pain documented in this encounter Care Teams Head Of Art Relationship Specialty Start Date End Date Karlie Tobar APRN [phone] [place] [address] PCP - General Internal Medicine 12/01/23 documented as of this encounter
--- OUTSIDE RECORDS SUMMARY | 2024-02-08 15:52 | XMS_ITS | Clinical Summary ---
Author Organization [facility] Address [address] [place] [address] Care Team Providers Care Quill Layer Name Role Phone Unknown, Provider Primary Care Provider Encounters Date Type Department Care Team Description 11/16/2023 Lab Requisition [facility] Pathology & Laboratory Medicine - [facility] [address] [place] [address] Outr Resulting Lab, Provider from Last 3 Months Social History Tobacco Use Types Packs/Day Years Used Date Smoking Tobacco: Never Assessed Interpersonal Safety Answer Date Record ed Physically Hurt Never 08/08/2020 Verbally Threaten Not on file 08/08/2020 Sex and Gender Information Value Date Recorded Sex Assigned at Not on file Gender Identity Not on file Sexual Orientation Not on file Plan of Treatment Health Maintenance Due Date Last Done Comments Hepatitis C Screen 1990 Hepatitis B Vaccine (1 of 3 - 19+ 3-dose series) 05/01 COVID-19 Vaccine ( season) 2023 Procedures Procedure Name Priority Date/Time Associated Diagnosis [...] is included. Hold Hold 11/16/2023 18:[address] [facility] Blood VENOUS BLOOD / Unknown 11/16/2023 10:30 EDT 11/16/2023 17:33 EDT Provider Outr Resulting Lab LAB INFO SER VICE AND SUPPORT & PHONE RESULT Performing Organization Address [facility]/[place] de Phone Number [facility] [address] [place] [id number] * SM (MACKENZIE) ANTIBODY, IGG (11/16/2023 10:30 EDT) Pathologist [facility] SM (Mackenzie) Antibody, IgG <8.0 <20.0 CU 11/17/2023 10:[address] [facility] Comment:Results were obtaine d with the ZeelA Flash Sm chemiluminescent immunoassay. Values obtained with different manufacturers' assay methods must not be used interchangeably. Blood VENOUS BLOOD / Unknown 11/16/2023 10:30 EDT 11/16/2023 17:18 EDT Provider Outr Resulting Lab IMMUNOLOGY A ND SEROLOGY ORDERABLES Performing Organization Address [facility] Co de Phone Number [facility] [address] [place] [id number] * CCP ANTIBODIES (11/16/2023 10:30 EDT) [facility] CCP Antibodies <2.5 <5.0 U/mL 11/17/2023 9:[address] [facility] Blood VENOUS BLOOD / Unknown 11/16/2023 10:30 EDT 11/16/2023 17:18 EDT Provider Outr Resulting Lab IMMUNOLOGY A ND SEROLOGY ORDERABLES [facility] [address] [place], [place] [id number] * LYME AB (11/16/2023 10:30 EDT) Pathologist [facility] Lyme Ab Negative Negative 11/17/2023 10:[address] [facility] Blood VENOUS BLOOD / Unknown 11/16/2023 10:30 EDT 11/16/2023 17:18 EDT Provider Outr Resulting Lab IMMUNOLOGY A ND SEROLOGY ORDERABLES Performing Organization Address [facility] de Phone Number [facility] [address] [place] [address] * RHEUMATOID FACTOR (11/16/2023 10:30 EDT) [facility] Rheumatoid Factor <8.6 <12.0 IU/mL 11/16/2023 17:[address] [facility] Blood VENOUS BLOOD / Unknown 11/16/2023 10:30 EDT 11/16/2023 17:18 EDT Provider Outr Resulting Lab CHEMISTRY & BLOOD GAS ORDERABLES Performing Organization Address [facility] de Phone Number [facility] [address] [place] [address] * ANTI NUCLEAR AB (CONY), IFA (11/16/2023 10:30 EDT) [facility] CONY Interpretation Negative Negative 2023 13:[address] [facility] Comment:No titer performed, CONY Screen is negative. Blood VENOUS BLOOD / Unknown 11/16/2023 10:30 EDT 11/16/2023 17:18 EDT Narrative [facility] - 11/17/2023 13:20 EDT Results were obtained with the INOVA NOVA Lite HEp-2 CONY Kit by indirect immunofluorescence. Provider Outr Resulting Lab IMMUNOLOGY A ND SEROLOGY ORDERABLES Performing Organization Address City/[facility] Co de Phone Number [facility] [address] [place] [address] from Last 3 Months Parag Manzanares Personal/Family Self 1990 [address] [facility] [place] [address] Parag Manzanares Personal/Family Self 1990 [address] [facility] [place] [address] Parag Manzanares Personal/Family Self 1990 [address] [facility] [place] [address] Care Teams Quill Layer Relationship Specialty Start Date End Date Unknown, Provider, PCP - General 08/11/21
--- OUTSIDE RECORDS SUMMARY | 2024-02-08 15:52 | XMS_ITS | Encounter Summary ---
Author Organization [facility] Address [address] [place] [address] Care Team Providers Care Crisis Nurse Name Role Phone Unknown, Provider Primary Care Provider [phone] Encounter Details Date Type Department Care Team (Late st Contact Info) Description 08/31/2021 Lab Requisition [facility] Pathology & Laboratory Medicine - [facility] [address], [place] [phone] Randy Saenz MD [address] [place] [address] [address] [place], [place] [phone] Encounter for screening for malignant neoplasm of colon Social History Tobacco Use Types Packs/Day Years [...] Procedure Name Priority Date/Time Associated Diagnosis Comments SURGICAL PATHOLOGY Today 08/31/2021 10 :18 EST Encounter for screening for malignant neoplasm of colon documented in this encounter Results * SURGICAL PATHOLOGY (08/31/2021 10:18 EST) Note to Patient The following pathology results have been interpreted by your pathologist and may be available to you before your health provider has had the opportunity to review them. Please allow time for your provider to receive these results and explore management options, if applicable. 09/02/2021 9:31 EST [facility] Final Diagnosis A. RECTUM, POLYP, BIOPSY: - Hyperplastic polyp. B. COLON, CECUM, POLYP, BIOPSY: - Tubular adenoma. 09/02/2021 9:31 [facility] Attestation By the signature below, the attending physician certifies that they have 1) personally conducted a gross and/or microscopic examination of the described specimen(s), and/or personally interpreted the results of laboratory testing of the described specimen(s), and 2) personally rendered or confirmed the above diagnosis. 09/02/2021 9:31 [facility] at 0931 Clinical History Colon cancer screening; family history of colon cancer; rectal bleeding 09/02/2021 9:31 [facility] Gross Description A. Received in formalin labelled with proper patient identification (initials L, W) and rectal polyp is a single fragment of bell soft tissue (0.3 x 0.3 x 0.2 cm). The specimen is entirely submitted in A1. B. Received in formalin labelled with proper patient identification (initials L, W) and cecal polyp is a single fragment of bell soft tissue (0.4 x 0.3 x 0.2 cm). The specimen is entirely submitted in B1. GILL GUILLEN(ASCP) 08/31/2021 17:21 09/02/2021 9:31 [facility] Performing Lab [facility] 09/02/2021 9:31 [facility] Scanned Images 09/02/2021 9:31 [facility] Tissue CECUM STRUCTURE / Unknown 08/31/2021 10:18 EST 08/31/2021 16:56 EST Tissue specimen (specimen) CECUM STRUCTURE / Unknown 08/31/2021 10:18 EST 08/31/2021 16:56 EST Randy Saenz MD PATHOLOGY ORDERA TRES [facility] [address] [place] [address] documented in this encounter Visit Diagnoses Diagnosis Encounter for screening for malignant neoplasm of colon Special screening for malignant neoplasms, colon documented in this encounter Care Teams Crisis Nurse Relationship Specialty Start Date End Date Unknown, Provider, PCP - General 08/11/21 documented as of this encounter
--- OUTSIDE RECORDS SUMMARY | 2024-02-08 15:52 | XMS_ITS | Encounter Summary ---
Author Organization [facility] Address [address] [place] [address] Care Team Providers Care Security Dispatcher Name Role Phone Unknown, Provider Primary Care Provider Encounter Details Date Type Department Care Team (Late st Contact Info) Description 12/15/2022 Lab Requisition [facility] Pathology & Laboratory Medicine - [facility] [address] [place] [address] Outr Resulting Lab, Provider Social History Tobacco [...] Procedure Name Priority Date/Time Associated Diagnosis Comments CELIAC DISEASE PANEL Routine 12/15/2022 11:15 EDT documented in this encounter Results * CELIAC DISEASE PANEL (12/15/2022 11:15 EDT) Tissue Transglutaminase Antibody IGA <1.2 <4.0 U/mL 12/16/2022 12:[address] [facility] Comment: A negative result may be due to IgA deficiency and does not rule out celiac disease. ? Negative: ??<4.0 U/mL ? Weak Positive: ??4.0 - 10.0 U/mL ? Positive: ??>10.0 U/mL Results were obtained with the Morning TecA Lite R h-tTG IgA SAMIR assay on the [employer]. IgA 349 85 - 499 mg/dL 12/16/2022 12:[address] [facility] Celiac Disease Interpretation Negative Serology. Celiac disease unlikely. Approximately 10% of patients with celiac disease are seronegative. Patients who are already adhering to a gluten-free diet may also be seronegative. If celiac disease is highly clinically suspected, referral to gastroenterology for additional evaluation is recommended. 12/16/2022 12:[address] [facility] Blood VENOUS BLOOD / Unknown 12/15/2022 11:15 EDT 12/15/2022 21:20 EDT Provider Outr Resulting Lab IMMUNOLOGY A ND SEROLOGY ORDERABLES [facility] [address] [place] [address] documented in this encounter Visit Diagnoses Not on filedocumented in this encounter Care Teams Security Dispatcher Relationship Specialty Start Date End Date Unknown, Provider, PCP - General 08/11/21 documented as of this encounter
--- OUTSIDE RECORDS SUMMARY | 2024-02-08 15:52 | XMS_ITS | Encounter Summary ---
Author Organization [facility] Address [address] [place] [address] Care Team Providers Care Route Inspector Name Role Phone Unknown, Provider Primary Care Provider [phone] Encounter Details Date Type Department Care Team (Late st Contact Info) Description 08/07/2020 Lab Requisition [facility] Pathology & Laboratory Medicine - [facility] [address] [place] [address] Outr Resulting Lab, Provider Social History Tobacco [...] Comments ZZCOVID-19 TEST [facility] PCR Today 08/07/2020 14:25 EST COVID-19 TESTING Routine 08/07/2020 14:2 5 EST documented in this encounter Results * COVID-19 TEST [facility] PCR (08/07/2020 14:25 EST) Swab ENTIRE NASOPHARYNX / Unknown 08/07/2020 14:25 EST 08/07/2020 20:39 EST Provider Outr Resulting Lab MICROBIOLOGY - GENERAL ORDERABLES [facility] [address] [place] [address] * COVID-19 TESTING (08/07/2020 14:25 EST) COVID-19 rt-PCR Result Negative Negative 08/08/2020 18:[address] [facility] Comment: This test has [...] clinical observations, patient history, and epidemiological information. This test was developed and its performance characteristics determined by [facility]. It has not been cleared or approved by the US Food and Drug Administration. FDA does not require this test to go through premarket FDA review. This test is used for clinical purposes. It should not be regarded as investigational or for research. This laboratory is certified under the Clinical Laboratory Improvement Amendments (CLIA) as qualified to perform high complexity clinical laboratory testing. This test is based on the CDC COVID-19 Emergency Use Authorization (EUA) assay, with minor modification as defined by the FDA Performed on the Safaricrosso 7 Flex RT-PCR System. Performing Lab [facility] 08/08/2020 18:[address] [facility] Swab 08/07/2020 14:2 5 EST 08/07/2020 20:39 EST Provider Outr Resulting Lab MICROBIOLOGY - GENERAL ORDERABLES [facility] [address] [place] [address] documented in this encounter Visit Diagnoses Not on filedocumented in this encounter Care Teams Route Inspector Relationship Specialty Start Date End Date Unknown, Provider, PCP - General 08/11/21 documented as of this encounter
--- OUTSIDE RECORDS SUMMARY | 2024-02-08 15:52 | XMS_ITS | Encounter Summary ---
Author Organization [facility] Address [address] [place] [address] Care Team Providers Care Pipeline Construction Inspector Name Role Phone Unknown, Provider Primary Care Provider Encounter Details Date Type Department Care Team (Late st Contact Info) Description 11/16/2023 Lab Requisition [facility] Pathology & Laboratory Medicine - [facility] [address] [place] [address] Outr Resulting Lab, Provider Social History Tobacco [...] EDT HOLD SST Today 11/16/2023 10:30 EDT SM (MACKENZIE) ANTIBODY, IGG Today 11/16/2023 10:30 EDT CCP ANTIBODIES Today 11/16/2023 10:30 EDT LYME AB Today 11/16/2023 10:30 EDT RHEUMATOID FACTOR Today 11/16/2023 10: 30 EDT ANTI NUCLEAR AB (CONY), IFA Today 11/16/2023 10:30 EDT documented in this encounter Results * HOLD SST (11/16/2023 10:30 EDT) [facility] Signature Hold Hold 11/16/2023 18:46 EDT [facility] Blood VENOUS BLOOD / Unknown 11/16/2023 10:30 EDT 11/16/2023 17:33 EDT Provider Outr Resulting Lab LAB INFO SER VICE AND SUPPORT & PHONE RESULT Performing Organization Address [facility]/ZIP Co de Phone Number [facility] [address] [place] [address] * HOLD SST (11/16/2023 10:30 EDT) [facility] Hold Hold 11/16/2023 18:31 EDT [facility] Blood VENOUS BLOOD / Unknown 11/16/2023 10:30 EDT 11/16/2023 17:22 EDT Provider Outr Resulting Lab LAB INFO SER VICE AND SUPPORT & PHONE RESULT Performing Organization Address [facility]/ZIP Co de Phone Number [facility] [address] [place], [place] [address] * LYME AB (11/16/2023 10:30 EDT) [facility] Lyme Ab Negative Negative 11/17/2023 10:13 EDT [facility] Blood VENOUS BLOOD / Unknown 11/16/2023 10:30 EDT 11/16/2023 17:18 EDT Provider Outr Resulting Lab IMMUNOLOGY A ND SEROLOGY ORDERABLES Performing Organization Address [facility]/ZIP Co de Phone Number [facility] [address] [place], [place] [address] * RHEUMATOID FACTOR (11/16/2023 10:30 EDT) [facility] Rheumatoid Factor <8.6 <12.0 IU/mL 11/16/2023 17:46 EDT [facility] Blood VENOUS BLOOD / Unknown 11/16/2023 10:30 EDT 11/16/2023 17:18 EDT Provider Outr Resulting Lab CHEMISTRY & BLOOD GAS ORDERABLES Performing Organization Address [facility]/ZIP Co de Phone Number [facility] [address] [place], [place] [phone] * SM (MACKENZIE) ANTIBODY, IGG (11/16/2023 10:30 EDT) Pathologist [facility] SM (Mackenzie) Antibody, IgG <8.0 <20.0 CU 11/17/2023 10:17 EDT [facility] Comment:Results were obtaine d with the SecernoA Flash Sm chemiluminescent immunoassay. Values obtained with different manufacturers' assay methods must not be used interchangeably. Blood VENOUS BLOOD / Unknown 11/16/2023 10:30 EDT 11/16/2023 17:18 EDT Provider Outr Resulting Lab IMMUNOLOGY A ND SEROLOGY ORDERABLES Performing Organization Address [facility] Co de Phone Number [facility] [address] [place] [address] * ANTI NUCLEAR AB (CONY), IFA (11/16/2023 10:30 EDT) [facility] CONY Interpretation Negative Negative 2023 13:20 EDT [facility] Comment:No titer performed, CONY Screen is negative. Blood VENOUS BLOOD / Unknown 11/16/2023 10:30 EDT 11/16/2023 17:18 EDT Narrative [facility] - 11/17/2023 13:20 EDT Results were obtained with the INOVA NOVA Lite HEp-2 CONY Kit by indirect immunofluorescence. Provider Outr Resulting Lab IMMUNOLOGY A ND SEROLOGY ORDERABLES Performing Organization Address [facility] Co de Phone Number [facility] [address] [place] [address] * CCP ANTIBODIES (11/16/2023 10:30 EDT) CCP Antibodies <2.5 <5.0 U/mL 11/17/2023 9:36 EDT [facility] Blood VENOUS BLOOD / Unknown 11/16/2023 10:30 EDT 11/16/2023 17:18 EDT Provider Outr Resulting Lab IMMUNOLOGY A ND SEROLOGY ORDERABLES Performing Organization Address City/State/[facility] Co de Phone Number [facility] [address] [place] [address] documented in this encounter Visit Diagnoses Not on filedocumented in this encounter Care Teams Pipeline Construction Inspector Relationship Specialty Start Date End Date Unknown, Provider, PCP - General 08/11/21 documented as of this encounter
--- OUTSIDE RECORDS SUMMARY | 2024-02-08 15:52 | XMS_ITS | Encounter Summary ---
Author Organization [facility] Address [address] [place] [address] Care Team Providers Care Pyrotechnist Name Role Phone Unknown, Provider Primary Care Provider Encounter Details Date Type Department Care Team (Late st Contact Info) Description 03/29/2023 Lab Requisition [facility] Pathology & Laboratory Medicine - [facility] [address] [place], [place] [phone] Outr Resulting Lab, Provider Social History Tobacco [...] Procedure Name Priority Date/Time Associated Diagnosis Comments CCP ANTIBODIES Routine 03/28/2023 16:13 EDT LYME AB Routine 03/28/2023 16:13 EDT RHEUMATOID FACTOR Routine 03/28/2023 16: 13 EDT ANTI NUCLEAR AB (CONY), IFA Routine 03/28/2023 16:13 EDT documented in this encounter Results * LYME AB (03/28/2023 16:13 EDT) Lyme Ab Negative Negative 03/30/2023 9:29 EDT [facility] Blood VENOUS BLOOD / Unknown 03/28/2023 16:13 EDT 03/29/2023 17:33 EDT Provider Outr Resulting Lab IMMUNOLOGY A ND SEROLOGY ORDERABLES Performing Organization Address [facility] de Phone Number [facility] [address] [place] [address] * RHEUMATOID FACTOR (03/28/2023 16:13 EDT) Rheumatoid Factor <8.6 <12.0 IU/mL 03/29/2023 17:52 EDT [facility] Blood VENOUS BLOOD / Unknown 03/28/2023 16:13 EDT 03/29/2023 17:33 EDT Provider Outr Resulting Lab CHEMISTRY & BLOOD GAS ORDERABLES Performing Organization Address [facility] Co de Phone Number [facility] [address] [place] [address] * ANTI NUCLEAR AB (CONY), IFA (03/28/2023 16:13 EDT) Pathologist [facility] CONY Interpretation Negative Negative 2022 15:00 EDT [facility] Comment:No titer performed, CONY Screen is negative. Blood VENOUS BLOOD / Unknown 03/28/2023 16:13 EDT 03/29/2023 17:33 EDT Narrative [facility] - 03/30/2023 15:00 EDT Results were obtained with the INOVA NOVA Lite HEp-2 CONY Kit by indirect immunofluorescence. Provider Outr Resulting Lab IMMUNOLOGY A ND SEROLOGY ORDERABLES Performing Organization Address [facility] Co de Phone Number [facility] [address] [place] [address] * CCP ANTIBODIES (03/28/2023 16:13 EDT) Pathologist [facility] CCP Antibodies <2.5 <5.0 U/mL 03/30/2023 9:15 EDT [facility] Blood VENOUS BLOOD / Unknown 03/28/2023 16:13 EDT 03/29/2023 17:33 EDT Provider Outr Resulting Lab IMMUNOLOGY A ND SEROLOGY ORDERABLES Performing Organization Address [facility]/State/ZIP Co de Phone Number [facility] [address] [place] [address] documented in this encounter Visit Diagnoses Not on filedocumented in this encounter Care Teams Pyrotechnist Relationship Specialty Start Date End Date Unknown, Provider, PCP - General 08/11/21 documented as of this encounter
--- OUTSIDE RECORDS SUMMARY | 2024-02-08 15:52 | XMS_ITS | Clinical Summary ---
Author Organization [facility] [place] [address] Care Team Providers Care Die Assembler Name Role Phone Karlie Tobar APRN Primary Care Provider Encounters Date Type Department Care Team Description 12/01/2023 Transcribe Orders eDH Incoming Referrals [phone] Karlie Tobar APRN Pain in joint, multiple sites; Pain from Last 3 Months Social History Tobacco Use Types Packs/Day Years Used Date Smoking Tobacco: Never Assessed Sex and Gender Information Value Date Recorded Sex Assigned at Not on file Gender Identity Not on file Sexual Orientation Not on file Plan of Treatment Health Maintenance Due Date Last Done Comments HIV screen 2009 Hepatitis C Screening 2009 Hepatitis B vaccine (0-59 yrs) (1) 2010 Tdap adult 2010 Tetanus vaccine 2010 Covid-19 Vaccine ( season) 2023 Influenza (Flu) vaccine (1 o f 1 - Influenza standard series) 03/11/2024 Procedures Procedure Name Priority Date/Time Associated Diagnosis Comments LAB SCAN 11/16/2023 12:00 AM EDT from Last 3 Months Results * Scan Doc: Lab (11/16/2023 12:00 AM EDT) Narrative 11/16/2023 12:00 AM EDT Ordered by an unspecified provider. Scanning Provider MEDIA MGR SCAN EXT O RDR/RSLT from Last 3 Months Care Teams Die Assembler Relationship Specialty Start Date End Date Karlie Tobar, TEST BORER HELPER [address] [place] [address] PCP - General Internal Medicine 12/01/23
[2024-02-08 16:10] LABS: Iron 187 ug/dL (65-175); Total Iron Binding Capacity 325 ug/dL (250-450); Transferrin Sat 58 % (20-55)
[2024-02-09 10:02] LABS: Lab Add On Test DONE
[2024-02-09 10:49] LABS: Ferritin 483 ng/mL (26-388)
== END 2024-02-08 15:52 | disposition home or self-care (01) ==
LOC: LBO 15:51
PROVIDERS: PCP Nurse Practitioner; Visit Provider Nurse Practitioner Family
DX: K92.1 Melena (principal); D12.6 Benign neoplasm of colon, unspecified; R89.9 Unspecified abnormal finding in specimens from other organs, systems and tissues
CPT/HCPCS: 36415; 85027; 82728; 83540; 83550

== ENCOUNTER 2024-05-21 01:30 | Outpatient (CLI) | payer MEDICAID, SELFPAY ==
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
== END 2024-05-21 01:50 ==
PROVIDERS: PCP Nurse Practitioner; Visit Provider Nurse Practitioner
DX: Z87.39 Personal history of other diseases of the musculoskeletal system and connective tissue (principal); Z87.828 Personal history of other (healed) physical injury and trauma; M51.27 Other intervertebral disc displacement, lumbosacral region
CPT/HCPCS: 72148